=== PATIENT | female | born 1970 | race Caucasian/White ===

== ENCOUNTER → 2017-12-28 10:54 | Outpatient (CLI) | payer OTHER, SELFPAY ==
--- NOTE | 2017-12-28 13:43 | PFT ---
INTRODUCTION: The patient is a 47-year-old female currently under the care of Dr. Faulkner the presents for pulmonary function testing secondary to a diagnosis of asthma. Respiratory therapy reports good patient effort reports no other concerns. Bronchodilators were used during testing. INTERPRETATION: Forced expiration spirometry demonstrates the presence of a mild large airways obstructive ventilatory defect. There was a significant response to aerosolized bronchodilators noted in both FEV1 and FVC. Spirogram is of good quality and plateau gradually. Body plethysmography was performed and reveals a trend towards hyperinflation. Diffusing capacity by single breath CO is within normal limits at 81% of predicted. IMPRESSION: These pulmonary function studies demonstrate the presence of a fully reversible mild large airways obstructive ventilatory defect, consistent with an underlying diagnosis of asthma.
== END ==
PROVIDERS: Family Provider Family Medicine; PCP Family Medicine; Visit Provider Family Medicine
DX: J45.901 Unspecified asthma with (acute) exacerbation (principal)
CPT/HCPCS: 94060; 94726; 94729

== ENCOUNTER 2018-01-17 15:08 | Emergency (ER) | payer OTHER, SELFPAY ==
[2018-01-17 15:11] VITALS: BP 158/85; PULSE 91; PULSE 97; RESP 13; TEMP 35.9; O2SAT 98; O2SAT 99; BMI 39.1
[2018-01-17] MEDS: Ibuprofen 400 MG Tablet 800 MG PO (15:32)
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
[2018-01-17 15:47] VITALS: PULSE 89; O2SAT 98
== END 2018-01-17 15:49 | disposition home or self-care (01) ==
LOC: ED 15:47
PROVIDERS: Emergency Provider Emergency Medicine; Family Provider Family Medicine; PCP Family Medicine
DX: S16.1XXA Strain of muscle, fascia and tendon at neck level, initial encounter (principal); V43.52XA Car driver injured in collision with other type car in traffic accident, initial encounter; Y93.9 Activity, unspecified; Y92.410 Unspecified street and highway as the place of occurrence of the external cause; Y99.8 Other external cause status; Z72.0 Tobacco use
CPT/HCPCS: 99283

== ENCOUNTER → 2019-03-26 12:22 | Outpatient (CLI) | payer OTHER, SELFPAY ==
--- NOTE | 2019-03-26 12:25 | US_ITS ---
STUDY: THYROID ULTRASOUND REASON FOR EXAM: Female, 48 years old. Left neck swelling. TECHNIQUE: Ultrasound evaluation of the left side of the neck in the region of interest was performed with real-time and static moran-scale imaging. COMPARISON: None. FINDINGS: Targeted ultrasound examination of the left side of the neck in the region of clinical concern was performed. There is a well-defined solid mass on the left side of the neck corresponding to the palpable abnormality measuring about 2.4 x 2.3 x 1.4 cm. There is flow around the mass. No other masses are identified. US/Head/Neck Soft Tissue IMPRESSION: Solid mass in the left side of the neck corresponding to the palpable abnormality as described above. Tissue sampling might be needed for final diagnosis if clinically indicated. Electronically Signed: David Bajwa MD at 14:25 EDT Tel , Service support ,
== END ==
LOC: US 12:23
PROVIDERS: Family Provider Family Medicine; PCP Family Medicine; Referring Provider Family Medicine; Visit Provider Family Medicine
DX: R22.0 Localized swelling, mass and lump, head (principal); R22.1 Localized swelling, mass and lump, neck
CPT/HCPCS: 76536

== ENCOUNTER → 2019-04-03 | Outpatient (CLI) | payer OTHER, SELFPAY ==
--- NOTE | 2019-04-03 17:40 | CT_ITS ---
HISTORY: LT NECK MASS ON US. TECHNIQUE: Helically acquired images were obtained of the neck following the intravenous administration of 100ML ml of Isovue 370 Iodinated, IV contrast. A radiation dose optimization technique was used for this scan. COMPARISON: Ultrasound from March 26, 2019. FINDINGS: # of images incl. paperwork: 291 Findings: Within the left upper lobe there is a well-defined 3.2 cm bulla. The aortic arch is normal. Flow is present within the brachiocephalic, bilateral common carotid, bilateral subclavian, bilateral vertebral arteries. The left vertebral artery is dominant over the right. Both left and right vertebral arteries ascend within the respective vertebral foramina, remain patent into the brain performed the basilar artery. Flow is normal within bilateral CCAs, ICAs, and ECAs. Both ICAs remain patent into the skull. Both internal Jugular veins are patent. The airway is widely patent. The uvula and epiglottis are not thickened and remain within the midline. The basilar artery forms the posterior cerebral arteries. Right posterior communicating arteries present. Anterior communicating arteries present. Both ACAs or MCAs are patent. Orbits and globes are normal. Paranasal sinuses and mastoid air cells are free of disease. The thyroid gland is heterogeneous. Within the left lobe of the thyroid gland there is a 1.5 x 1.1 cm well-defined hypodense lesion. It has a central density of 68 Hounsfield units. It has septations. The right lobe of the thyroid gland and isthmus are normal. Bilateral submandibular glands and parotid glands are normal. Some lymph nodes are present within both the left and right neck, however, no lymphadenopathy is perceived. Musculature within the neck is normal. No abscesses are perceived. The left and right submandibular glands are symmetric in size and appearance. Left and right parotid glands are symmetric in size and appearance. The masseter muscles, and the pterygoid muscles are symmetric and normal in appearance. Within the cervical and upper thoracic spine bony alignment is normal. Disc and vertebral body height are normal. Facets are well aligned with some arthropathy. Prevertebral and paraspinal soft tissues are normal. Bilateral temporomandibular joint arthritis is present with remodeling of the mandibular condyles. A left sided molar, likely the third molar appears to be ingrown with its roots extending into the left maxillary sinus. No sinus disease is perceived. CT/Soft Tissue Neck WITH Contrast IMPRESSION: No mass perceived within the left neck. Within the left lobe of the thyroid gland, however, there is a complex septated hypodense lesion measuring 1.1 x 1 cm. I do not believe this is the lesion identified on the ultrasound from March 26. This lesion in the left lobe of the thyroid gland should be compared and a previous imaging. If no previous imaging, short-term follow-up versus fine-needle aspiration should be considered. I think it is feasible, that the lesion identified on the ultrasound is the normal left submandibular gland. Individualized dose optimization techniques were used for this CT. at 0329 Reported and signed by: Kadeem Adams MD Electronically Signed: Kadeem Adams MD at 3:28 EDT Tel , Service support ,
== END | disposition home or self-care (01) ==
LOC: CT 17:37
PROVIDERS: Family Provider Family Medicine; PCP Family Medicine; Referring Provider Otolaryngology; Visit Provider Otolaryngology
DX: R22.1 Localized swelling, mass and lump, neck (principal)
CPT/HCPCS: 70491; Q9967

== ENCOUNTER → 2019-06-10 16:36 | Outpatient (CLI) | payer OTHER, SELFPAY ==
[2019-06-13 12:51] LABS: HPV Reflexed? NOT INDICATED
== END ==
PROVIDERS: Family Provider Family Medicine; PCP Family Medicine; Visit Provider Family Medicine
DX: Z12.4 Encounter for screening for malignant neoplasm of cervix (principal); Z01.419 Encounter for gynecological examination (general) (routine) without abnormal findings
CPT/HCPCS: 88175; G0145

== ENCOUNTER → 2020-01-27 15:18 | Outpatient (CLI) | payer OTHER, SELFPAY ==
--- NOTE | 2020-01-27 15:29 | MRI_ITS ---
STUDY: MRI LUMBAR SPINE WITHOUT CONTRAST REASON FOR EXAM: Female, 49 years old. pain low back and rt sciatica X 3 years, NKI TECHNIQUE: Standardized fat and water weighted pulse sequences were obtained in the sagittal and axial planes. COMPARISON: Lumbar spine x-ray dated May 12, 2016 FINDINGS: No compression deformity or fracture line or bone marrow edema is present. Benign small rounded fatty hemangioma is present in the L1 vertebral body. Normal lumbar lordosis. Mild dextroscoliosis is present. Normal conus medullaris that terminates at the T12-L1 level. L1-2: Normal endplates. Normal disc height, hydration and morphology. Normal bilateral facet joints. Normal central canal and bilateral lateral recesses. Normal bilateral intervertebral neural foramina. L2-3: Normal endplates. Normal disc height, hydration and morphology. Normal bilateral facet joints. Normal central canal and bilateral lateral recesses. Normal bilateral intervertebral neural foramina. L3-4: Minimal retrolisthesis of L3 on L4 up to millimeters is present. Normal endplates. Minimal disc space narrowing and diffuse disc desiccation are present. Normal bilateral facet joints. Normal central canal and bilateral lateral recesses. Normal bilateral intervertebral neural foramina. L4-5: Minimal retrolisthesis of L4 on L5 of 2 mm is present. Normal endplates. Minimal disc space narrowing and diffuse disc desiccation are present. Normal bilateral facet joints. Normal central canal and bilateral lateral recesses. Normal bilateral intervertebral neural foramina. L5-S1: Normal endplates. Normal disc height, hydration and morphology. Normal bilateral facet joints. Normal central canal and bilateral lateral recesses. Normal bilateral intervertebral neural foramina. Normal visualized sacral ala. Normal visualized paraspinous soft tissue structures. MRI/Spine Lumbar (Routine) IMPRESSION: 1. Mild degenerative changes at L3-L4 and L4-L5. Electronically Signed: Taurus Faria MD at 21:16 EDT , Service support ,
== END ==
LOC: MRI 15:20
PROVIDERS: PCP Family Medicine; Referring Provider Family Medicine; Visit Provider Family Medicine
DX: M54.31 Sciatica, right side (principal)
CPT/HCPCS: 72148

== ENCOUNTER → 2021-02-16 08:06 | Outpatient (CLI) | payer OTHER, SELFPAY ==
--- NOTE | 2021-02-16 08:18 | CT_ITS ---
STUDY: CT SOFT TISSUE NECK WITH CONTRAST REASON FOR EXAM: Female, 50 years old. LEFT SIDED MASS/SUPERIORLY AND LUMP POSTERIOR TO EAR RADIATION DOSAGE (If Supplied By Facility): CTDIvol = ( 17.28 ) mGy, DLP = ( 522.43 ) mGycm TECHNIQUE: The patient was scanned in a multi-detector CT scanner. High resolution transaxial imaging was performed following intravenous administration of IV 100mL Isovue-370. Sagittal and coronal images were reconstructed. Individualized dose optimization techniques were used for this CT. COMPARISON: Comparison is made with prior examination dated 04/03/2019. FINDINGS: Normal bilateral parotid glands. Normal bilateral director of loss prevention spaces. Normal bilateral parapharyngeal spaces. Normal bilateral carotid spaces. Normal bilateral sublingual and submandibular glands and spaces. Normal visualized nasopharynx. Normal retropharyngeal space. Normal perivertebral space. Normal visualized bilateral faucial tonsils. The visualized tongue, tongue base and oropharynx are normal. The visualized cervical lymph nodes (levels I-) are within normal size limits, and maintain normal morphology. There is no demonstrated solid or cystic mass lesion. There is no abnormal contrast enhancement. Normal epiglottis, bilateral vallecula and hypopharynx. The pre-epiglottic and paraglottic adipose spaces are normal. Normal visualized bilateral piriform sinuses, aryepiglottic folds, vocal cords, and arytenoid-cricoid articulations. Normal subglottic trachea. There is a 1 cm rounded hypodensity in the inferior pole of the left lobe of the thyroid. This is unchanged. Tiny hypodensities also seen in lateral midportion of the right lobe. This is unchanged. Normal visualized pulmonary apices. Normal visualized paranasal sinuses. Normal visualized cervical spine. CT/Soft Tissue Neck WITH Contrast IMPRESSION: Stable examination. No mass is seen. Stable hypodensity in the left lobe of the thyroid. Electronically Signed: Daniele Durbin MD at 13:00 EDT , Service support ,
== END ==
PROVIDERS: PCP Family Medicine; Referring Provider Family Medicine; Visit Provider Family Medicine
DX: R22.1 Localized swelling, mass and lump, neck (principal)
CPT/HCPCS: 70491; Q9967

== ENCOUNTER → 2022-10-21 | Outpatient (CLI) | payer OTHER, SELFPAY ==
[2022-10-21 17:30] LABS: Absolute Lymphocyte Count 2.37 X10^3/uL (0.83-4.51); Absolute Neutrophil Count 8.1 X10^3/uL (2.0-7.7); Basophil# 0.05 X10^3/uL; Basophil% 0.4 % (0-1); Eosinophil# 0.08 X10^3/uL; Eosinophils% 0.7 % (0-5); Hematocrit 44.2 % (37-47); Hemoglobin 14.4 g/dL (12.0-15.0); Lymphocyte # 2.37 X10^3/ul (0.83-4.51); Lymphocyte % 20.8 % (19-41); Mean Corp Hgb Conc 32.6 g/dL (32-36); Mean Corpuscular Hgb 30.4 pg (27.0-32.0); Mean Corpuscular Volume 93.4 fL (81-99); Mean Platelet Vol. 10.7 fl (6.2-12.0); Monocyte# 0.81 X10^3/uL; Monocyte% 7.1 % (0-10); NRBC Flagged by Analyzer 0 % (0-5); Neutrophil # 8.05 X10^3/uL (2.7-7.7); Neutrophil % 70.6 % (47-70); Platelet Count 334 K/mm3 (150-450); RBC Distribution Width CV 12.6 % (11.6-14.6); RBC Distribution Width SD 43.5 fl (35.1-43.9); Red Blood Count 4.73 M/mm3 (4.2-5.4); White Blood Count 11.4 K/mm3 (4.4-11.0)
[2022-10-21 18:07] LABS: Hemoglobin A1c 5.5 % (3.8-5.6)
[2022-10-21 18:15] LABS: Vitamin B12 300 pg/mL (211-911); Vitamin D,25 Hydroxy 14.1 ng/mL
[2022-10-21 18:34] LABS: AST(SGOT) 11 U/L (15-37); Alanine Aminotransfer ALT/SGPT 23 U/L (13-56); Albumin, Serum 3.8 g/dL (3.2-5.0); Alkaline Phosphatase 87 U/L (45-117); Anion Gap 8 (5-15); BUN 15 mg/dL (7-18); BUN/Creat Ratio 24.5 RATIO (10-20); Calcium,Total 8.8 mg/dL (8.5-10.1); Chloride 103 mmol/L (98-107); Cholesterol 243 mg/dL (200); Creatinine, Serum 0.61 mg/dL (0.55-1.02); EST Glomerular Filtration Rate 109 mL/min (>60); Est Glom Filt Rate - Afr Amer 132 mL/min (>60); Globulin 3.7 g/dL (2.2-4.2); Glucose 89 mg/dL (74-106); High Density Lipoprotein 41 mg/dL; Potassium 3.7 mmol/L (3.5-5.1); Protein, Total 7.5 g/dL (6.4-8.2); Sodium Level 139 mmol/L (136-145); Thyroid Stim Hormone (TSH) 1.44 uIU/mL (0.358-3.74); Triglycerides 413 mg/dL
== END | disposition home or self-care (01) ==
LOC: BFHLAB 14:44
PROVIDERS: PCP Family Medicine; Visit Provider Family Medicine
DX: Z00.00 Encounter for general adult medical examination without abnormal findings (principal); R53.83 Other fatigue
CPT/HCPCS: 36415; 80053; 80061; 82306; 82607; 83036; 84443; 85025

== ENCOUNTER → 2023-04-03 | Outpatient (CLI) | payer OTHER, SELFPAY ==
--- NOTE | 2023-04-03 08:30 | BI_ITS ---
MAMMOGRAPHY - BILATERAL SCREENING REASON FOR EXAM: Female, 52 years old. Routine annual screening examination. PERTINENT HISTORY: Non-contributory. TECHNIQUE: Digital bilateral breast easton (3D mammographic acquisition) in the CC and MLO projections. 2-D mediolateral oblique (MLO) and craniocaudad (CC) views of both breasts were obtained. CAD: Full Field Digital Mammography with Computer Added Detection was performed. COMPARISON: Mammogram from 09/10/2014. FINDINGS: Breast Composition: There are scattered areas of fibroglandular density. There are no dominant masses or suspicious calcifications. No other significant abnormalities are identified. There has been no significant change since the prior study. BI/SCRN MAMM (CAD)W/EASTON BILAT IMPRESSION: Stable bilateral screening mammogram. Yearly follow-up mammogram recommended. (A) ASSESSMENT CATEGORY: BIRADS Category 2: Benign. A letter regarding these results will be sent to the patient by the facility within 30 days. Approximately 10% of breast cancers are not detected by mammography. A normal mammogram should not delay biopsy of a clinically suspicious abnormality. Electronically Signed: Louis Claudio DO at 15:05 EDT ,
== END | disposition home or self-care (01) ==
LOC: OPBI 08:27
PROVIDERS: PCP Family Medicine; Referring Provider Family Medicine; Visit Provider Family Medicine
DX: Z12.31 Encounter for screening mammogram for malignant neoplasm of breast (principal)
CPT/HCPCS: 77063; 77067

== ENCOUNTER 2023-05-18 07:06 | Day surgery (SDC) | payer OTHER, SELFPAY ==
[2023-05-18] VITALS (7 sets, daily range): BP systolic 92–118; BP diastolic 66–75; PULSE 71–82; RESP 16; TEMP 36.2–36.5; O2SAT 95–97; BMI 39.0
[2023-05-18 07:36] LABS: Internal QC Validated? YES +Cl - CLEAR BKGD; Pregnancy, Urine Negative Negative
[2023-05-18] MEDS: Lactated Ringers 1,000 ML 15 ML IV (07:44)
--- NOTE | 2023-05-18 08:27 | PCM.HP.STD ---
[facility] - General General Date of Admission: 05/18/23 Date of Service: 05/18/23 Chief Complaint: Screening colonoscopy [facility] Narrative SUSAN AKERS, is a 52 F who presents today for screening colonoscopy. She has a family history of cancers polyps in her mother status post segmental resection. She has never had a colonoscopy. She denies any abdominal pain. She denies any nausea, vomiting or diarrhea. She denies any chest pain or shortness of breath. She has not take any medicines on a daily basis. Overall she is in fairly good health. [facility] Medical History (Updated 05/16/23 @ 09:34 by Emy Portillo) Asthma Heartburn History of edema Leg cramps Migraine headache Smoker Syncope Wears partial dentures Home Medications cholecalciferol (vitamin D3) 50 mcg (2,000 unit) capsule 50 mcg PO DAILY 02/28/23 [History Last Taken Unknown] hydrocodone 7.5 mg-acetaminophen 325 mg tablet 1 tab PO Q6H PRN pain 05/16/23 [History Last Taken Unknown] Allergy/AdvReac Type Severity Reaction Status Date / Time No Known Allergies Allergy Verified 05/18/23 07:40 Family History (Updated 02/28/23 @ 08:49 by Rimma Riggins) Mother Colon polyps Colon cancer History of partial colectomy Surgical History (Updated 05/16/23 @ 09:34 by Emy Portillo) History of dental surgery History of tonsillectomy (~1975) Social History Smoking Status: Current every day smoker tobacco type: cigarettes ROS Review of Systems ROS Unobtainable: other Constitutional Constitutional: Denies fatigue, fever(s), poor appetite, weight gain or weight loss ENT HEENT: Denies mouth lesions Cardiovascular Cardiovascular: Denies abdominal bloating, abdominal edema or abdominal pain Respiratory/Chest Respiratory/Chest: Denies change in mental status, change in phlegm color, chest congestion or chest tightness Gastrointestinal Gastrointestinal: Denies belching, bloating, change in bowel habits, change in stool character, chewing difficulty, coffee ground emesis, constipation, cramping, diarrhea, dyspepsia, dysphagia, early satiety, excessive flatus, fecal incontinence, heartburn, hematemesis, hematochezia, hemorrhoids, loose stools, melena, nausea, odynophagia, rectal bleeding, tenesmus, vomiting or weight changes Genitourinary Genitourinary: Denies abdominal discomfort, burning urination or itching Musculoskeletal Musculoskeletal: Reports as per HPI; Denies muscle weakness or myalgias Integumentary Integumentary: Denies jaundice Neurologic Neurologic: Denies lack of coordination or weakness Psychiatric Psychiatric: Denies confusion, depression, memory loss, mood swings, paranoia or suicidal ideation Endocrine Endocrinology: Denies systems reviewed and no addt'l complaints, except as documented Hematologic/Lymphatic Hematologic/Lymphatic: Denies anemia, easy bleeding, easy bruising or lymphadenopathy Allergic/Immunologic Allergic/Immunologic: Denies systems reviewed and no addt'l complaints, except as documented Vital Signs Vital Signs Vital Signs: 05/18/23 07:40 05/18/23 07:40 Temperature 97.1 F L Temperature Source Temporal Pulse Rate 76 Respiratory Rate 16 Respiratory Pattern Normal Blood Pressure 118/71 Blood Pressure Mean 86 Blood Pressure Source Monitor Blood Pressure Position Semi-Fowlers Blood Pressure Location Left Arm Pulse Ox 95 Oxygen Delivery Method Room Air Weight Weight: 234 lb 9.149 oz Body Mass Index (BMI) 39.0 Physical Exam Const alert General Appearance: cooperative Orientation / Consciousness: oriented to person HEENT hearing grossly normal bilaterally Head and Scalp: normal to inspection Face and Sinus: face symmetric Nose: external nose normal Mouth: oral and palatal mucosa normal Eyes conjunctivae normal General Eye: normal appearance of both eyes Neck full ROM General: normal visual inspection Lymph Lymphatic: no lymphadenopathy noted Chest inspection of chest normal and palpation of chest normal Chest: symmetrical chest wall rise Resp normal respiratory effort Effort and Inspection: able to speak in complete sentences Cardio regular rate GI non-distended Percussion: normal to percussion Rectal Exam: deferred Neuro Speech: speech normal Gait (Neuro): normal gait Results Lab / Micro Data Labs: Laboratory Results - last 24 hr 05/18/23 07:25: Urine Test Negative Assessment & Plan Assessment/Plan (1) Encounter for screening for malignant neoplasm of colon: PLAN: She was explained alternatives, risk, benefits including outstanding bleeding, infection, sepsis, perforation, need for emergent surgery . She will have an ASA of 2.
--- NOTE | 2023-05-18 08:57 | OP.COLON_ITS ---
Patient Name: Kylah Edge Procedure Date: 05/18/2023 8:27 AM Date of : 1970 Age: 52 Procedure: Colonoscopy Indications: Screening for colorectal malignant neoplasm Providers: William Alanis DO Referring MD: Andi Faulkner Medicines: Monitored Anesthesia Care Patient Profile: This is a 52 year old female. Refer to note in patient chart for documentation of history and physical. Last Colonoscopy: none. The patient's first colonoscopy is today. Complications: No immediate complications. Procedure: Pre-Anesthesia Assessment: - Prior to the procedure, a History and Physical was performed, and patient medications and allergies were reviewed. The patient is competent. The risks and benefits of the procedure and the sedation options and risks were discussed with the patient. All questions were answered and informed consent was obtained. Patient identification and proposed procedure were verified by the physician in the pre-procedure area. Mental Status Examination: alert and oriented. Airway Examination: normal oropharyngeal airway and neck mobility. Respiratory Examination: clear to auscultation. CV Examination: normal. Prophylactic Antibiotics: The patient does not require prophylactic antibiotics. Prior Anticoagulants: The patient has taken no previous anticoagulant or antiplatelet agents. After reviewing the risks and benefits, the patient was deemed in satisfactory condition to undergo the procedure. The anesthesia plan was to use monitored anesthesia care (MAC). Immediately prior to administration of medications, the patient was re-assessed for adequacy to receive sedatives. The heart rate, respiratory rate, oxygen saturations, blood pressure, adequacy of pulmonary ventilation, and response to care were monitored throughout the procedure. The physical status of the patient was re-assessed after the procedure. After I obtained informed consent, the scope was passed under direct vision. Throughout the procedure, the patient's blood pressure, pulse, and oxygen saturations were monitored continuously. The Colonoscope was introduced through the anus and advanced to the terminal ileum. The colonoscopy was performed without difficulty. The patient tolerated the procedure well. The quality of the bowel preparation was adequate. Scope In: 8:40:04 AM Scope Withdrawal Time 0 hours 8 minutes 14 seconds Scope Out: 8:50:48 AM Total Procedure Duration Time 0 hours 10 minutes 44 seconds Findings: The perianal and digital rectal examinations were normal. The colon (entire examined portion) appeared normal. A few small-mouthed diverticula were found in the recto-sigmoid colon and sigmoid colon. The exam was otherwise without abnormality on direct and retroflexion views. Impression: - The entire examined colon is normal. - Diverticulosis in the recto-sigmoid colon and in the sigmoid colon. - The examination was otherwise normal on direct and retroflexion views. - No specimens collected. Recommendation: - Discharge patient to home. - Resume previous diet. - Continue present medications. - Repeat colonoscopy in 10 years for screening purposes. Procedure Code(s): --- Professional --- G0121, Colorectal cancer screening; colonoscopy on individual not meeting criteria for high risk CPT copyright 2017 [employer]. All rights reserved. The codes documented in this report are preliminary and upon corporate executive chef review may be revised to meet current compliance requirements. William Alanis DO 05/18/2023 8:57:17 AM This report has been signed electronically. Number of Addenda: 0 Note Initiated On: 05/18/2023 8:27 AM
--- NOTE | 2023-05-18 08:58 | OP.CCLET_ITS ---
05/18/2023 Andi Faulkner [address] [place] [address] Re : Colonoscopy procedure for Kylah Minesh Dear Dr. Faulkner This procedure was performed on May. My impressions and recommendations are as follows: Impressions : - The entire examined colon is normal. - Diverticulosis in the recto-sigmoid colon and in the sigmoid colon. - The examination was otherwise normal on direct and retroflexion views. - No specimens collected. Recommendations : - Discharge patient to home. - Resume previous diet. - Continue present medications. - Repeat colonoscopy in 10 years for screening purposes. My findings are described in the full procedure note, which is enclosed. If I can be of further assistance, please feel free to contact me at . Sincerely, William Alanis, 05/18/2023 8:57:17 AM This report has been signed electronically.
== END 2023-05-18 09:40 | disposition home or self-care (01) ==
LOC: EN 07:09 → AC 07:09
PROVIDERS: Anesthesiology; PCP Family Medicine; Referring Provider Family Medicine; Visit Provider Internal Medicine Gastroenterology
PROC: 0DJD8ZZ Inspection of Lower Intestinal Tract, Via Natural or Artificial Opening Endoscopic (ICD-10-PCS; CPT 45378; principal; 2023-05-18 08:10)
DX: Z12.11 Encounter for screening for malignant neoplasm of colon (principal); K57.30 Diverticulosis of large intestine without perforation or abscess without bleeding; F17.210 Nicotine dependence, cigarettes, uncomplicated
CPT/HCPCS: G0121; 81025; J7120; J2405

== ENCOUNTER 2024-05-21 14:00 | Emergency (ER) | payer OTHER, SELFPAY ==
[2024-05-21 14:03] VITALS: BP 134/96; PULSE 86; RESP 18; TEMP 36.5; O2SAT 96; BMI 40.6
--- NOTE | 2024-05-21 14:37 | EKG12_ITS ---
Test Reason : GEN ILLNESS Blood Pressure : / mmHG Vent. Rate : 079 BPM Atrial Rate : 079 BPM P-R Int : 152 ms QRS Dur : 074 ms QT Int : 382 ms P-R-T Axes : 002 010 034 degrees QTc Int : 438 ms Normal sinus rhythm Low voltage QRS Borderline ECG Confirmed by Scott Boyd ([id number]), editor trade journal SINCERE FIGUEROA ([id number]) on 05/23/2024 9:23:21 AM Referred By: BROOKE CALLEJAS Confirmed By:Scott Boyd
[2024-05-21 14:53] LABS: Absolute Neutrophil Count 7.1 X10^3/uL (2.0-7.7); Basophil# 0.06 X10^3/uL; Basophil% 0.6 % (0-1); Eosinophil# 0.06 X10^3/uL; Eosinophils% 0.6 % (0-5); Hematocrit 42.6 % (37-47); Hemoglobin 13.9 g/dL (12.0-15.0); Lymphocyte % 22.9 % (19-41); Mean Corp Hgb Conc 32.6 g/dL (32-36); Mean Corpuscular Hgb 30.7 pg (27.0-32.0); Mean Platelet Vol. 9.8 fl (6.2-12.0); Monocyte# 0.86 X10^3/uL; Monocyte% 8.2 % (0-10); NRBC Flagged by Analyzer 0 % (0-5); Neutrophil # 7.05 X10^3/uL (2.7-7.7); Neutrophil % 67.3 % (47-70); Platelet Count 297 K/mm3 (150-450); RBC Distribution Width SD 44.3 fl (35.1-43.9); Red Blood Count 4.53 M/mm3 (4.2-5.4); White Blood Count 10.5 K/mm3 (4.4-11.0)
--- NOTE | 2024-05-21 14:54 | EX.ED.DYSGE1 ---
HPI History of Present Illness Chief Complaint: General Illness Narrative Narrative: Presents here referred from PCP office for evaluation. She had transient chest heaviness 1:30 AM this morning with diaphoresis. Symptoms lasted 30 minutes. Over the past week had pain in her neck and shoulder that is resolved. No dyspnea no cough. History of hyperlipidemia and tobacco. Family history in grandparents with MIs in their 50s and 60s. None in her parents. Denies recent travel or surgeries. No history of PE or DVT. No history of heart cath. No coronary disease history. Currently symptom-free. EKG PCP office reviewed was normal sinus rhythm. Prior similar symptoms: No PFSH PFSH Medical History Wears partial dentures Migraine headache Syncope Heartburn History of edema Leg cramps Smoker Asthma Home Medications ?Medication ?Instructions ?Recorded ?Last Taken ?Type cholecalciferol (vitamin D3) 50 50 mcg PO DAILY 02/28/23 Unknown History mcg (2,000 unit) capsule hydrocodone 7.5 mg-acetaminophen 1 tab PO Q6H PRN pain 05/16/23 Unknown History 325 mg tablet Allergy/AdvReac Type Severity Reaction Status Date / Time No Known Allergies Allergy Verified 05/21/24 14:02 Family History Mother Colon polyps Colon cancer History of partial colectomy Surgical History History of tonsillectomy (~1975) History of dental surgery Social History Smoking Status: Current every day smoker tobacco type: cigarettes ROS ROS ED Constitutional Constitutional ED: Denies chills, fever(s) or sweats Eyes Eyes: Denies change in vision ENT ENT ED: Denies dysphagia or sore throat Cardiovascular Cardiovascular: Reports chest pain; Denies leg edema, palpitations or racing heartbeat Respiratory/Chest Respiratory/Chest: Denies cough, dyspnea or dyspnea on exertion Gastrointestinal Gastrointestinal: Denies abdominal pain, diarrhea, nausea or vomiting Genitourinary Genitourinary ED: Denies dysuria, hematuria or urinary frequency Musculoskeletal Musculoskeletal: Denies back pain, extremity pain or neck pain Integumentary Denies rash or wounds Neurologic Neurologic: Denies headache(s), paresthesias or weakness EXAM Physical Exam Const Vital Signs: 05/21/24 14:03 Temperature 97.7 F L Temperature Source Temporal Pulse Rate 86 Respiratory Rate 18 Blood Pressure 134/96 H Blood Pressure Mean 108 Pulse Ox 96 Oxygen Delivery Method Room Air Positive well nourished and well developed General Appearance ED: well developed and NAD HEENT Reports moist mucous membranes normocephalic and atraumatic Eyes EOMs intact bilaterally and conjunctivae normal General Eye ED: Yes normal appearance of both eyes Neck no lymphadenopathy and supple General: Negative for tenderness Chest Wall Chest: Negative for tenderness Resp normal respiratory effort and normal air movement Effort and Inspection: symmetric chest movement; Negative for respiratory distress Cardio regular rate, regular rhythm and no murmurs Peripheral Pulses: pulses 2+ throughout GI normal to inspection, nondistended, normoactive bowel sounds and non-tender Palpation: Negative for guarding or rebound tenderness present Back/Spine no CVA tenderness and no thoracic nor lumbar tenderness Extremity normal to inspection General Extremety ED: Negative for edema or tenderness General Extremity: Negative for edema Neuro oriented x3 and no sensory deficits noted Sensorium / Orientation: awake and alert Skin no rashes or lesions noted and no wounds MDM MDM MDM Narrative Medical decision making narrative: Interventions / MDM: Differential diagnosis: Atypical chest pain Diagnosis considered but do not suspect: ACS however EKG cardiac enzyme negative. Pneumothorax however chest x-ray negative. Pulmonary embolism however no risk factors no hypoxia no tachycardia. My EKG interpretation: Sinus rate of 79, no ST or T wave changes. Imaging independently reviewed and interpreted by myself: 2 view chest x-ray: No acute process also read by radiology. External documents reviewed: N/A Test considered but not ordered:N/A ED course: Patient asymptomatic on arrival. EKG from office normal. Repeat EKG normal. Sent here for cardiac rule out. She if symptoms nearly 24 hours ago. Basic labs 1 troponin chest x-ray ordered. 1530: Troponin negative. With symptoms over 24 hours negative troponin, there is no cardiac injury. Do not feel repeat troponin is necessary. Chest x-ray negative. Basic labs are normal. She remained symptom-free. Patient was discharged with outpatient follow-up with strict return precautions. All questions were answered. Re-evaluation: stable Disposition discussed with patient/family/significant other: Patient Case discussed with consulting clinician: N/A This note was generated with [employer] dictation software. It may contain incorrect words, spelling, and punctuation that were not noted in checking the note before signing. Lab Data Attestation: I reviewed the patient's lab results. Labs: Laboratory Results - last 24 hr 05/21/24 14:45 WBC 10.5 RBC 4.53 Hgb 13.9 Hct 42.6 MCV 94.0 MCH 30.7 MCHC 32.6 RDW Std Deviation 44.3 H RDW Coeff of Lur[place] 13.0 Plt Count 297 MPV 9.8 Immature Gran % (Auto) 0.400 Neut % (Auto) 67.3 Lymph % (Auto) 22.9 [place] % (Auto) 8.2 Eos % (Auto) 0.6 Baso % (Auto) 0.6 Absolute Neuts (auto) 7.1 Absolute Lymphs (auto) 2.40 Nucleated RBC % 0 Sodium 139 Potassium 4.2 Chloride 103 Carbon Dioxide 31.0 Anion Gap 5 BUN 10 Creatinine 0.64 Estim Creat Clear Calc 121.62 Est GFR (MDRD) Af Amer 123 Est GFR (MDRD) Non-Af 102 BUN/Creatinine Ratio 15.5 Glucose 83 Calcium 9.4 Troponin I High Sens 4 Radiography Diagnostic Testing: Clinical Impression(s) from Imaging Studies Chest X-Ray 05/21/24 15:00 IMPRESSION: No acute abnormality is seen. Electronically Signed: Daniele Durbin MD at 15:19 EDT Reading Location ID and State: [facility] / [place] , Service support , Discharge Plan Triage Chief Complaint: General Illness ED Provider: Gilbert Yeung Dx/Rx/DC Orders Clinical Impression: Chest pain, History of tobacco use Instructions: ED Chest Pain, Uncertain Cause Prescriptions: No Action cholecalciferol (vitamin D3) 50 mcg (2,000 unit) capsule 50 mcg PO DAILY hydrocodone-acetaminophen 7.5-325 mg tablet 1 tab PO Q6H PRN (Reason: pain) Patient Comments: take 1 tablet by mouth every 6 hours if needed FOR INTRACTABLE PAIN Primary Care Provider: Andi Faulkner Referrals: Andi Fauklner, [Primary Care Provider] - 3-5 Days Activity Restrictions/Additional Instructions: Blood work negative cardiac enzyme chest x-ray negative. EKG normal. Follow-up with your doctor further testing. Symptoms returns or worsens, return to ED for reevaluation. Print Language: Swedish Disposition Disposition: Home, Self Care Discharge Date/Time: 05/21/24 15:43
--- NOTE | 2024-05-21 15:00 | RAD_ITS ---
STUDY: X-RAY CHEST REASON FOR EXAM: Female, 53 years old. Chest pain and nausea. TECHNIQUE: PA and lateral views of the chest. COMPARISON: Comparison is made with prior study dated March 20, 2009. FINDINGS: EKG electrodes are seen. The lungs are clear and expanded. There is no demonstrated pleural abnormality. Normal size heart. Normal mediastinum and [place]. Normal visualized pulmonary arteries. Normal visualized aortic arch and descending thoracic aorta. There is demineralization of the osseous structures. Normal visualized ribs, clavicles, and shoulders. There is no demonstrated abnormality of the visualized soft tissue structures of the upper abdomen. RAD/Chest PA and Lateral IMPRESSION: No acute abnormality is seen. Electronically Signed: Daniele Durbin MD at 15:19 EDT ,
[2024-05-21 15:11] LABS: Anion Gap 5 (5-15); BUN 10 mg/dL (7-18); BUN/Creat Ratio 15.5 RATIO (10-20); Calcium,Total 9.4 mg/dL (8.5-10.1); Chloride 103 mmol/L (98-107); Creatinine, Serum 0.64 mg/dL (0.55-1.02); EST Glomerular Filtration Rate 102 mL/min (>60); Est Glom Filt Rate - Afr Amer 123 mL/min (>60); Estimated Creatinine Clearance 121.62 ml/min; Glucose 83 mg/dL (74-106); Potassium 4.2 mmol/L (3.5-5.1); Sodium Level 139 mmol/L (136-145); Troponin-I HS 4 pg/mL (3.0-54.0)
[2024-05-21 15:39] VITALS: BP 134/87; PULSE 84; RESP 19; TEMP 36.8; O2SAT 96
== END 2024-05-21 15:43 | disposition home or self-care (01) ==
PROVIDERS: Emergency Provider Emergency Medicine; PCP Family Medicine; Visit Provider Emergency Medicine
DX: R07.89 Other chest pain (principal); F17.210 Nicotine dependence, cigarettes, uncomplicated
CPT/HCPCS: 71046; 80048; 84484; 85025; 93005; 99284; A4216

== ENCOUNTER → 2024-06-12 | Outpatient (CLI) | payer OTHER, SELFPAY ==
--- NOTE | 2024-06-12 12:38 | STRESSREP_ITS ---
Stress Test Report Date: 06/12/2024 Procedure: Pharmacologic stress nuclear imaging study Indications: Chest pain Consent: Per the patient Procedure: The patient underwent pharmacologic (Regadenoson 0.4mg ) evaluation with a peak heart rate of 99 beats per minute (59%predicted maximal heart rate) and a peak blood pressure of 128/70 mmHg. The baseline ECG demonstrated sinus rhythm. The peak pharmacologic ECG demonstrated no ischemic changes. There were no cardiac dysrhythmias pretest, during pharmacologic infusion, or recovery. There was no complaint of chest discomfort during pharmacologic infusion or recovery. The patient was injected with 14.8 millicuries of technetium 99m Cardiolite and subsequently rest SPECT Cardiolite nuclear imaging was obtained in the horizontal long, vertical long, and short axis views. The patient underwent pharmacologic (Regadenoson) evaluation. The patient was injected with 44.4 millicuries of technetium 99m Cardiolite and subsequently stress SPECT Cardiolite nuclear imaging was obtained in the horizontal long, vertical long, and short axis views. A gated Cardiolite study at peak stress was obtained. The examination was stopped secondary to completion of protocol. Rest and stress SPECT Cardiolite nuclear imaging status post realignment, normalization, and attenuation correction demonstrate no fixed or reversible perfusion defects. There is end systolic thickening and brightening. The gated Cardiolite study demonstrates myocardial thickening and inward wall motion. The reported LVEF is 81%. Impression: 1. Pharmacologic (Regadenoson) evaluation 2. Peak pharmacologic ECG with no ischemic changes. 3. There were no cardiac dysrhythmias pretest, during pharmacologic infusion, or recovery. 5. Rest and stress SPECT Cardiolite nuclear imaging demonstrate relative uniform tracer uptake and myocardial perfusion appearing within normal limits. 6. The gated Cardiolite study reports an LVEF of 81%. This note was generated with [employer] software. It may contain incorrect words, spelling, and punctuation that were not noted in checking the note before signing.
== END | disposition home or self-care (01) ==
PROVIDERS: PCP Family Medicine; Referring Provider Family Medicine; Visit Provider Family Medicine
DX: R07.9 Chest pain, unspecified (principal)
CPT/HCPCS: 78452; 93017; A9500; A4216; J2785

== ENCOUNTER → 2024-12-03 | Outpatient (CLI) | payer OTHER, SELFPAY ==
[2024-12-03 18:10] LABS: Amphetamine Urine NEGATIVE (<1000 ng/mL); Barbiturate Urine VISTA NEGATIVE (< 200 ng/mL); Benzodiazepine Urine VISTA NEGATIVE (< 200 ng/mL); Cocaine Urine NEGATIVE (< 300 ng/mL); Ecstacy Urine VISTA POSITIVE (< 500 ng/mL); Methadone Urine VISTA NEGATIVE (< 300 ng/mL); Opiates Urine POSITIVE (< 300 ng/mL); PCP Urine NEGATIVE (< 25 ng/mL); THC Urine VISTA POSITIVE (< 50 ng/mL); Vista UDS pH Range 5
== END | disposition home or self-care (01) ==
PROVIDERS: PCP Family Medicine; Visit Provider Family Medicine
DX: Z79.899 Other long term (current) drug therapy (principal)
CPT/HCPCS: 80307

== ENCOUNTER → 2025-06-30 | Outpatient (CLI) | payer OTHER, SELFPAY ==
[2025-06-30 19:07] LABS: Barbiturate Urine NEGATIVE (< 200 ng/mL); Benzodiazepine Urine NEGATIVE (< 200 ng/mL); PCP Urine NEGATIVE (< 25 ng/mL); THC Urine PRESUMPTIVE POSITIVE (< 50 ng/mL)
== END | disposition home or self-care (01) ==
LOC: BFHLAB 14:39
PROVIDERS: PCP Family Medicine; Visit Provider Family Medicine
DX: Z79.899 Other long term (current) drug therapy (principal)
CPT/HCPCS: 80307

== ENCOUNTER → 2025-07-11 | Outpatient (CLI) | payer OTHER, SELFPAY ==
--- NOTE | 2025-07-11 18:17 | CT_ITS ---
PROCEDURE: LOW DOSE CT LUNG SCREENING 07/11/2025 REASON FOR EXAM: SCREEN FOR LUNG CA, TOBACCO ABUSE Patient is a current smoker for the past 25-30 years. 1PPD. Asthma. TECHNIQUE: Procedure Code: [id number] Modality: CT Procedure: LOW DOSE CT LUNG SCREENING Coronal and Sagittal reconstruction series were provided. One or more dose reduction techniques were used (e.g., Automated exposure control, adjustment of the mA and/or kV according to patient size, use of iterative reconstruction technique). REFERENCE LINK: [employer] [facility] Lung-RADS RADIATION DOSE SUMMARY: CTDlvol: 4.02 mGy DLP: 135.9 mGycm COMPARISON: Chest x-ray study dated 05/21/2024 FINDINGS: PULMONARY NODULES: (Only nodules >3mm are reported) Pulmonary Nodules: There are no pulmonary nodules. Hardware:None Lymph Nodes:No IV contrast was utilized for the exam therefore visualization of the mediastinal structures is limited. There is no mediastinal, hilar or axillary adenopathy identified. Heart and Vasculature:Heart size and configuration are within normal limits.Atherosclerotic calcifications of the thoracic aorta. Thoracic aorta and pulmonary arteries have normal contours; noncontrast technique limits evaluation. Coronary Artery Calcifications: Present Lungs and Airways: There is a bulla identified in the left upper lobe medially just superior to the aortic arch. Atelectasis or parenchymal scarring is seen involving the lingular lobe anteriorly. There is no consolidative process, pneumonic infiltrates, pneumothoraces or pleural effusions. Upper Abdomen:The lack of IV contrast limits of visibility of the abdominal structures. The visualized liver, spleen, pancreas, adrenal glands and left kidney are unremarkable. Bones:Very mild spondylosis is noted of the thoracic spine. CT/Low Dose CT Lung Screening IMPRESSION: There are no pulmonary nodules identified. Emphysematous changes. There is some parenchymal scarring or atelectasis in the left lung. Coronary artery calcification (CAC) is is present(mild) Lung-RADS Category: 1 NEGATIVE. RECOMMEND 12-MONTH SCREENING LDCT. Reading Location: [facility]
--- OUTSIDE RECORDS SUMMARY | 2025-07-11 18:17 | XMS RPT_ITS | CCD ---
Author Organization [facility] Care Team Providers Care Bus Info Consultant Name Role Phone Dr. Shweta Faulkner Primary Care Provider [phone] Rimma Riggins Attending Provider Unavailable Dr. Shweta Faulkner Referring Provider Friend, Dr. Thomas Attending Provider [phone] Friend, Dr. Thomas Other Provider [phone] Shweta Faulkner DO Primary Care Provider Shweta Faulkner DO A Primary Care Provider SHWETA FAULKNER Primary Care Unavailable SHWETA FAULKNER Primary Care Unavailable Shweta Faulkner Primary Care Unavailable Shweta Faulnker Attending Unavailable Shweta Faulkner Referring Unavailable Shweta Faulkner Primary Care Unavailable Shweta Faulkner Attending Unavailable Shweta Faulkner Primary Care Unavailable Shweta Faulkner Attending Unavailable Medications Current Medications Medication Drug Class(es) Dates Sig (Normalized) Sig (Original) acetaminophen 325 mg / HYDROcodone bitartrate 7.5 mg oral tablet (3 sources) Opioid Agonist Start: 05-16-2023 take 1 tablet by mouth every six hours Hydrocodone-Aceta minophen Active 1 TABLET PO EVERY 6 HOURS May 16, 2023 12:00am HYDROCODONE/ACET AMINOPHEN (NORCO ORAL) Take by mouth. as necessary Active HYDROCODONE/ACET AMINOPHEN (NORCO ORAL) Take by mouth. as necessary 0 Active Comment on above: Take by mouth. as ne cessary [id number] 200 actuat albuterol 0.09 mg/actuat metered dose inhaler (2 sources) beta2-Adrenergic Agonist Start: take 2 puff(s) by inhalation every four hours as needed albuterol HFA (PROAIR HFA) 90 mcg/actuation inhaler Inhale 2 Puffs as instructed every 4 hours as needed. 1 Inhaler 10/10/2017 Active Comment on above: Inhale 2 Puffs as in structed every 4 hours as needed. amoxicillin 500 mg oral capsule (1 source) Penicillin-class Antibacterial Start: End: take 1 capsule by mouth twice daily amoxicillin (AMOXIL) 500 mg capsule Take 1 capsule by mouth two times a day for 10 days. 20 capsule 08/16/2024 08/26/2024 Active cholecalciferol 0.05 mg oral capsule (4 sources) Vitamin D Start: Cholecalciferol, Vitamin D3, 50 mcg (2,000 unit) cap Take by mouth. 02/28/2023 Active Comment on above: Take by mouth. doxycycline monohydrate 100 mg oral tablet (1 source) Tetracycline-class Drug Start: End: take 1 tablet by mouth twice daily doxycycline monohydrate 100 mg tablet Indications: Lower resp. tract infection Take 1 tablet by mouth two times a day for 7 days. May transfer to [place] if less expensive. 14 tablet 0 09/09/2023 09/16/2023 Active Comment on above: Take 1 tablet by [facility] two times a day for 7 days. May transfer to [place] if less expensive. predniSONE 20 mg oral tablet (1 source) Start: End: take 2 tablets by mouth once daily predniSONE (DELTASONE) 20 mg tablet Indications: Lower resp. tract infection , History of asthma Take 2 tablets by mouth once daily for 5 days. 10 tablet 0 09/09/2023 09/14/2023 Active Comment on above: Take 2 tablets by [facility] once daily for 5 days. Completed/Discontinued Medications Medication Drug Class(es) Dates Sig (Normalized) Sig (Original) Migraine Pills (3 sources) Start: 01-17-2018 End: 02-28-2023 Migraine Pills Discontinued January 17, 2018 12:00am February 28, 2023 8:50am Start: 01-17-2018 Migraine Pills Active January 16, 2018 11:00pm phentermine hydrochloride 37.5 mg oral tablet (2 sources) Sympathomimetic Amine Anorectic Start: 08-28-2023 End: 08-16-2024 take 1 tablet by mouth once daily in the morning Phentermine HCl 37.5 mg tablet Take 37.5 mg by mouth every morning. 08/28/2023 08/16/2024 Discontinued Comment on above: Take 37.5 mg by mout h every morning. Problems Active Problems Problem Classification Problem Date Documented Da te Episodic/Chronic Other lower respiratory disease (1 source) Lower respiratory tract infection; Translations: [Unspecified acute lower respiratory infection] 09-09-2023 Episodic Other lower respiratory disease (1 source) H/O: asthma; Translations: [Personal history of other diseases of the respiratory system] 09-09-2023 Episodic Other screening for suspected conditions (not mental disorders or infectious disease) (4 sources) Patient encounter status; Translations: [Encounter for screening for malignant neoplasm of colon] Onset: 07-04-2025 02-28-2023 Episodic Other upper respiratory infections (2 sources) Sore throat symptom; Translations: [Acute pharyngitis, unspecified] 08-16-2024 Episodic Residual codes; unclassified (1 source) Tobacco use; Translations: [Tobacco use] Onset: 07-04-2025 Episodic Past or Other Problems Problem Classification Problem Date Documented Da te Episodic/Chronic Other aftercare (1 source) Other residential (current) drug therapy; Translations: [Other residential (current) drug therapy] Onset: 12-17-2024 Episodic Results Test Name Value Interpretation Reference Range Facility Urine Drug Screen (VISTA)on 06-30-2025 AMPHETAMINES Negative Normal <1000 ng/mL [facility] Comment on above: Order Comment: UKN Performed By: #### L [id number] #### [facility] [address] [place], [address] BARBITIURATES Negative Normal < 200 ng/mL [facility] Comment on above: Order Comment: UKN Performed By: #### L [id number] #### [facility] [address] [place], [place], [id number] BENZODIAZIPINE Negative Normal < 200 ng/mL [facility] Comment on above: Order Comment: UKN Performed By: #### L [id number] #### [facility] [address] [place], [address] BUP Ur Drug Scr Negative Normal < 200 ng/mL [facility] Comment on above: Order Comment: UKN Performed By: #### L [id number] #### [facility] [address] [place], [address] COCAINE Negative Normal < 300 ng/mL [facility] Comment on above: Order Comment: UKN Performed By: #### L [id number] #### [facility] [address] [facility] [address] Fentanyl Negative Normal <5 ng/mL [facility] Comment on above: Order Comment: UKN Result Comment: CONF IRMATORY TESTING FOR ALL POSITIVE URINE DRUG SCREEN RESULTS WILL ONLY BE SENT OUT UPON PHYSICIAN ORDER. Opal Pro Urine Drug Screen methods provide only preliminary analytical test results. A more specific alternate chemical method must be used in order to obtain a confirmed analytical result. Gas chromatography/mass spectrometery (GC/MS) is the preferred confirmatory method. Clinical consideration and professional judgement should be applied to any drug of abuse test result, particularly when preliminary positive results are used. Urine TCA testing must be ordered separately. Use test mnemonic: UTCA Performed By: #### L 505.5000 #### [facility] [address] [place], [address] METHADONE Negative Normal < 300 ng/mL [facility] Comment on above: Order Comment: UKN Performed By: #### L [id number] #### [facility] [address] [place], [address] OPIATES Positive Normal < 300 ng/mL [facility] Comment on above: Order Comment: UKN Result Comment: If c onfirmation testing is needed, a separate order will be required to send out testing to the reference laboratory. Performed By: #### L [id number] #### [facility] [address] [place], [address] OXYCODONE Negative Normal < 100 ng/mL [facility] Comment on above: Order Comment: UKN Performed By: #### L [id number] #### [facility] [address] [place] [id number] PCP Negative Normal < 25 ng/mL [facility] Comment on above: Order Comment: UKN Performed By: #### L [id number] #### [facility] [address] [place] [address] THC Positive Normal < 50 ng/mL [facility] Comment on above: Order Comment: UKN Result Comment: If c onfirmation testing is needed, a separate order will be required to send out testing to the reference laboratory. Performed By: #### L [id number] #### [facility] [address] [place] [address] Urine Drug Screen (VISTA)on 12-03-2024 AMPHETAMINES Negative Normal <1000 ng/mL [facility] Comment on above: Order Comment: MEDTO X Performed By: #### L [id number] #### [facility] [address] [facility] [address] BARBITIURATES Negative Normal < 200 ng/mL [facility] Comment on above: Order Comment: MEDTO X Performed By: #### L [id number] #### [facility] [address] [place] [address] BENZODIAZIPINE Negative Normal < 200 ng/mL [facility] Comment on above: Order Comment: MEDTO X Performed By: #### L [id number] #### [facility] [address] [facility] [address] COCAINE Negative Normal < 300 ng/mL [facility] Comment on above: Order Comment: MEDTO X Performed By: #### L [id number] #### [facility] [address] [facility] [address] ECSTACY Positive Abnormal < 500 ng/mL [facility] Comment on above: Order Comment: MEDTO X Performed By: #### L [id number] #### [facility] [address] [place], [place], [id number] METHADONE Negative Normal < 300 ng/mL [facility] Comment on above: Order Comment: MEDTO X Performed By: #### L [id number] #### [facility] [address] [place], [place], [id number] OPIATES Positive Abnormal < 300 ng/mL [facility] Comment on above: Order Comment: MEDTO X Performed By: #### L [id number] #### [facility] [address] [place], [place], [id number] PCP Negative Normal < 25 ng/mL [facility] Comment on above: Order Comment: MEDTO X Performed By: #### L [id number] #### [facility] [address] [place], [address] THC Positive Abnormal < 50 ng/mL [facility] Comment on above: Order Comment: MEDTO X Performed By: #### L [id number] #### [facility] [address] [place], [place], [id number] VISTA UDS PH 5 Normal [facility] Comment on above: Order Comment: MEDTO X Performed By: #### L [id number] #### [facility] [address] [place], [place], [address] CNOVon 08-16-2024 CNOV Office Visit ([facility] ) KYLAH EDGE ([id number]) 1970 F Date Time Provider Department 08/16/24 3:00 PM [facility] During your visit today, we recorded the following information about you: Temperature Pulse Respiration Blood pressure 99.9 degrees 101/minute 20/minute 106/74 Weight 107 kg Tomas Richardson APRN.CNP 08/16/2024 3:21 PM Signed Subjective HPI Nontoxic-appearing female presents urgent care chief complaint strep throat concerns. Duration of symptoms 2 days. Associated symptoms fever sore throat nausea headache. History of strep throat this feels similar. No known sick contacts. Did take Tylenol. This did help. Denies any difficulty swallowing his secretion decreased range of motion of neck or trismus. Did have tonsils removed as a child. Past medical history prescription medications allergies reviewed. .Patient presents with: Sore Throat: Fever, headache, nausea x 2 days PAST MEDICAL HISTORY Diagnosis Date PMH - PAST MEDICAL HISTORY OF pneumonia PAST SURGICAL HISTORY Procedure Laterality Date NONE ALLERGIES Patient has no known allergies. MEDICATIONS Cholecalciferol, Vitamin D3, 50 mcg (2,000 unit) cap Take by mouth. HYDROCODONE/ACETAMINO PHEN (NORCO ORAL) Take by mouth. as necessary albuterol HFA (PROAIR HFA) 90 mcg/actuation inhaler Inhale 2 Puffs as instructed every 4 hours as needed. FAMILY HISTORY Problem Relation Age of Onset Heart Father Hypertension Father None Mother colon polyps Social History Tobacco Use Smoking status: Every Day Smokeless tobacco: Never Tobacco comments: 0-5 cigarettes per day Substance Use Topics Alcohol use: Yes Comment: weekly wine or beer BP 106/74 Pulse 101 Temp 37.7 ?C (99.9 ?F) Resp 20 Wt 107 kg (235 lb 14.3 oz) LMP (LMP Unknown) SpO2 96% Review of Systems Constitutional: Positive for fever. Negative for chills and malaise/fatigue. HENT: Positive for sore throat. Negative for congestion, ear discharge, ear pain and sinus pain. Eyes: Negative for blurred vision, pain, discharge and redness. Respiratory: Negative for cough, hemoptysis, sputum production, shortness of breath, wheezing and stridor. Cardiovascular: Negative for chest pain. Gastrointestinal: Positive for nausea. Negative for abdominal pain, diarrhea and vomiting. Musculoskeletal: Negative for myalgias. Skin: Negative for itching and rash. Neurological: Positive for headaches. Negative for dizziness. Objective Physical Exam Constitutional: General: She is not in acute distress. Appearance: She is not diaphoretic. HENT: Head: Normocephalic. Jaw: No trismus, tenderness, swelling or pain on movement. Mouth/Throat: Mouth: Mucous membranes are moist. Pharynx: Oropharynx is clear. Uvula midline. Posterior oropharyngeal erythema present. No pharyngeal swelling, oropharyngeal exudate or uvula swelling. Eyes: Conjunctiva/sclera: Conjunctivae normal. Pupils: Pupils are equal, round, and reactive to light. Cardiovascular: Rate and Rhythm: Normal rate and regular rhythm. Heart sounds: Normal heart sounds. Pulmonary: Effort: Pulmonary effort is normal. No tachypnea, accessory muscle usage or respiratory distress. Breath sounds: Normal breath sounds. No stridor. No wheezing, rhonchi or rales. Abdominal: General: There is no distension. Palpations: Abdomen is soft. Tenderness: There is no abdominal tenderness. There is no guarding or rebound. Musculoskeletal: Cervical back: Normal range of motion and neck supple. No edema, erythema, rigidity or tenderness. No pain with movement. Normal range of motion. Lymphadenopathy: Cervical: Cervical adenopathy present. Skin: General: Skin is warm and dry. Neurological: Mental Status: She is alert and oriented to person, place, and time. ASSESSMENT/PLAN: 1. Sore throat - ICD9: 462, ICD10: J02.9 (primary diagnosis) - STREP A MOLECULAR (POC) 2. Strep throat - ICD9: 034.0, ICD10: J02.0 Strep test positive. Diagnosed with strep pharyngitis. Placed on amoxicillin. No evidence of deep space infection. Patient was educated on supportive therapies. Patient will follow up with primary care provider as needed. Patient was instructed to immediately proceed to emergency room for any new, worsening, or symptoms lasting longer than anticipated. The patient's clinical presentation is otherwise unremarkable at this time. Based on exam and clinical finding, the patient is stable for discharge. Plan of care was discussed with patient. Patient verbalizes understanding and agrees to plan of care. This note was generated using [employer] software. It may contain errors in wording, punctuation, or spelling. Tomas Richardson APRN.CHEMICAL LAB SUPERVISOR Allergies As of Date: 08/16/2024 (No Known Allergies) Date Reviewed: 08/16/2024 Reviewed by: Tomas Richardson APRN.CN (more content not included)... Normal [facility] Zepeda STREP A MOLECULAR (POC)on Interpretation and review of laboratory results Abnormal [facility] Procedural Control Valid [facility] Strep A (POCT) Positive Abnormal Negative [facility] CNOVon 09-09-2023 CNOV Office Visit ([facility] ) KYLAH EDGE ([id number]) 1970 F Date Time Provider Department 09/09/23 12:30 PM [facility] During your visit today, we recorded the following information about you: Temperature Pulse Respiration Blood pressure 98.1 degrees 81/minute 20/minute 126/84 Weight 103.9 kg Reina Riggins APRN.CNP 09/09/2023 12:58 PM Signed Subjective HPI HPI Kylah Edge is a 52 year old female who presents today for CC of cough, wheeze, sob, congestion 1 week ago. This started otc medication for relief. Has tried nothing. Risk factors no sick exposures known. Hx of asthma, smoker. .Patient presents with: Sinus Problem: Coughing, lightheaded x 1 week PAST MEDICAL HISTORY Diagnosis Date PMH - PAST MEDICAL HISTORY OF pneumonia PAST SURGICAL HISTORY Procedure Laterality Date NONE ALLERGIES Patient has no known allergies. MEDICATIONS Cholecalciferol, Vitamin D3, 50 mcg (2,000 unit) cap Take by mouth. Phentermine HCl 37.5 mg tablet Take 37.5 mg by mouth every morning. HYDROCODONE/ACETAMINO PHEN (NORCO ORAL) Take by mouth. as necessary albuterol HFA (PROAIR HFA) 90 mcg/actuation inhaler Inhale 2 Puffs as instructed every 4 hours as needed. FAMILY HISTORY Problem Relation Age of Onset Heart Father Hypertension Father None Mother colon polyps Social History Tobacco Use Smoking status: Every Day Smokeless tobacco: Never Tobacco comments: 0-5 cigarettes per day Substance Use Topics Alcohol use: Yes Comment: weekly wine or beer Review of Systems Constitutional: Negative for fever. HENT: Positive for congestion and sore throat. Negative for ear pain and nosebleeds. Respiratory: Positive for cough, shortness of breath and wheezing. Cardiovascular: Negative for chest pain. Musculoskeletal: Negative for neck pain. Skin: Negative for itching and rash. Objective Blood pressure 126/84, pulse 81, temperature 36.7 ?C (98.1 ?F), resp. rate 20, weight 103.9 kg (229 lb), SpO2 96 %. Physical Exam Constitutional: General: She is not in acute distress. Appearance: She is not toxic-appearing or diaphoretic. HENT: Head: Normocephalic and atraumatic. Cardiovascular: Rate and Rhythm: Normal rate and regular rhythm. Heart sounds: Normal heart sounds, S1 normal and S2 normal. Pulmonary: Effort: Pulmonary effort is normal. Breath sounds: Wheezing (scattered bilat) present. No decreased breath sounds, rhonchi or rales. Lymphadenopathy: Cervical: No cervical adenopathy. Right cervical: No superficial cervical adenopathy. Left cervical: No superficial cervical adenopathy. Neurological: Mental Status: She is alert and oriented to person, place, and time. Gait: Gait is intact. ASSESSMENT/PLAN: 1. Lower resp. tract infection - ICD9: 519.8, ICD10: J22 (primary diagnosis) No xray at time of exam - Discussed supportive care - Limit exposure to smoke and other inhaled irritants - Discussed possible red flags and when to seek medical attention - Follow up in 3-5 days or sooner if no better or worse -If you experience chest pain/shortness of breath go to ER - PREDNISONE 20 MG TABLET - DOXYCYCLINE MONOHYDRATE 100 MG TABLET 2. History of asthma - ICD9: V12.69, ICD10: Z87.09 Steroid ordered - PREDNISONE 20 MG TABLET Reina Riggins APRN.CHEMICAL LAB SUPERVISOR Allergies As of Date: 09/09/2023 (No Known Allergies) Date Reviewed: 09/09/2023 Reviewed by: Reina Riggins APRN.CHEMICAL LAB SUPERVISOR - Fully Assessed Reason for Visit: Sinus Problem [99] Cmt: Coughing, lightheaded x 1 week Primary Visit Diagnosis:Lower resp. tract infection [J22] Other Visit Diagnosis:History of asthma [Z87.09] Order(s):predniSONE (DELTASONE) 20 mg tabletTake 2 tablets by mouth once daily for 5 days.Disp: 10 tabletRfl: 0 doxycycline monohydrate 100 mg tabletTake 1 tablet by mouth two times a day for 7 days. May transfer to [facility] if less expensive.Disp: 14 tabletRfl: 0 Prescriptions as of 09/09/2023 - Cholecalciferol, Vitamin D3, 50 mcg (2,000 unit) cap Take by mouth. - Phentermine HCl 37.5 mg tablet Take 37.5 mg by mouth every morning. - predniSONE (DELTASONE) 20 mg tablet Take 2 tablets by mouth once daily for 5 days. - doxycycline monohydrate 100 mg tablet Take 1 tablet by mouth two times a day for 7 days. May transfer to [facility] if less expensive. - HYDROCODONE/ACETAMINO PHEN (NORCO ORAL) Take by mouth. as necessary - albuterol HFA (PROAIR HFA) 90 mcg/actuation inhaler Inhale 2 Puffs as instructed every 4 hours as needed. Problem List As Of Date: 09/09/2023 (None) Prescriptions ordered this encounter Disp Refills Start End PREDNISONE 20 MG TABLET 10 t* 0 09/09/2023 09/14/2023 Route: ORAL Sig: Take 2 tablets by mouth once daily for 5 days. DOXYCYCLINE MONOHYDRATE 100 MG TABLET 14 t* 0 09/09/2023 09/16/2023 Route: ORAL Sig: Take 1 tablet by mouth two times a day f (more content not included)... Normal [facility] - Chemistry and C hemistry - challengeOrdered By: Oj Mike on 05-18-2023 HCG ( test) Ql (U) Negative [facility] Comment on above: Very dilute urine sp ecimens, as indicated by a low specificgravity, may not contain appeals representative levels of hCG. If is still suspected, a first morning urinespecimen should be collected 48 hours later and tested. Absolute lymphocyte countOrd ered By: Dr. Faulkner on 10-21-2022 Lymphocytes Auto (Unsp spec) [#/Vol] 2.37 10*3/uL 0.83-4.51 [facility] Basophil percentageOrdered B y: Dr. Faulkner on 10-21-2022 Basophils/100 WBC (Bld) 0.4 % 0-1 [facility] Bilirubin [Mass/Vol] 0.20 mg/dL 0.20-1.00 [facility] Comment on above: For patients on eltr ombopag therapy, use of Dimension [place] TBIL is not recommended. Chloride [Moles/Vol] 103 mmol/L 98-107 [facility] Cholesterol [Mass/Vol] 243 mg/dL <200 [facility] Comment on above: <200 mg/dL Desirable 200-240 mg/dL Borderline >240 mg/dL High Risk Eosinophils/100 WBC (Bld) 0.7 % 0-5 [facility] Glucose [Mass/Vol] 89 mg/dL 74-106 [facility] Neutrophils (Bld) [#/Vol] 8.1 10*3/uL 2.0-7.7 [facility] Neutrophils/100 WBC (Bld) 70.6 % 47-70 [facility] Potassium [Moles/Vol] 3.7 mmol/L 3.5-5.1 [facility] Protein [Mass/Vol] 7.5 g/dL 6.4-8.2 [facility] Sodium [Moles/Vol] 139 mmol/L 136-145 [facility] Triglyceride [Mass/Vol] 413 mg/dL <199 [facility] Comment on above: The drugs N-Acetylcy steine and Metamizole may falsely depress this assay. TRIGLYCERIDE IS GREATER THAN 400 mg/dL. LDL RESULT IS INVALID AND WILL NOT BE REPORTED.Serum Triglycerides Reference Interval Normal <150 mg/dL Borderline high 150 - 199 mg/dL High 200 - 499 mg/dL Very High > or = 500 mg/dL WBC (Bld) [#/Vol] 11.4 10*3/uL 4.4-11.0 [facility] Blood erythrocytes count (nu mber/volume)Ordered By: Dr. Faulkner on 10-21-2022 RBC (Bld) [#/Vol] 4.73 10*6/uL 4.2-5.4 [facility] Blood hemoglobin measurement (mass/volume)Ordered By: Dr. Faulkner on 10-21-2022 Hemoglobin (Bld) [Mass/Vol] 14.4 g/dL 12.0-15.0 [facility] Blood lymphocytes/100 leukoc ytesOrdered By: Dr. Faulkner on 10-21-2022 Lymphocytes/100 WBC (Bld) 20.8 % 19-41 [facility] Blood monocytes/100 leukocyt esOrdered By: Dr. Faulkner on 10-21-2022 Monocytes/100 WBC (Bld) 7.1 % 0-10 [facility] Blood platelet mean volumeOr dered By: Dr. Faulkner on 10-21-2022 Platelet mean volume (Bld) [Entitic vol] 10.7 fL 6.2-12.0 [facility] Determination of erythrocyte mean corpuscular volume (MCV)Ordered By: Dr. Faulkner on 10-21-2022 MCV (RBC) [Entitic vol] 93.4 fL 81-99 [facility] Hematocrit Auto (Bld) [Volum e fraction]Ordered By: Dr. Faulkner on 10-21-2022 Hematocrit (Bld) [Volume fraction] 44.2 % 37-47 [facility] Laboratory - Chemistry and C hemistry - challengeOrdered By: Dr. Faulkner on 10-21-2022 ALP [Catalytic activity/Vol] 87 U/L 45-117 [facility] ALT [Catalytic activity/Vol] 23 U/L 13-56 [facility] CO2 [Moles/Vol] 28.0 mmol/L 21.0-32.0 [facility] Cobalamin (Vitamin B12) [Mass/Vol] 300 pg/mL 211-911 [facility] Globulin (S) [Mass/Vol] 3.7 g/dL 2.2-4.2 [facility] Urea nitrogen/Creatinine [Mass ratio] 24.5 mg/mg 10-20 [facility] Laboratory - Hematology and Cell countsOrdered By: Dr. Faulkner on 10-21-2022 Erythrocyte distribution width (RBC) [Entitic vol] 43.5 fL 35.1-43.9 [facility] Erythrocyte distribution width (RBC) [Ratio] 12.6 % 11.6-14.6 [facility] Immature granulocytes/100 WBC (Bld) 0.400 % 0.0-0.9 [facility] Comment on above: IG% - Immature Granu locytes (promyelocytes, myelocytes and metamyelocytes) > 1% indicates that a LEFT SHIFT is Present. MCH (RBC) [Entitic mass] 30.4 pg 27.0-32.0 [facility] Nucleated RBC/100 WBC (Bld) [Ratio] 0 % 0-5 [facility] MCHC Auto (RBC) [Mass/Vol]Or dered By: Dr. Faulkner on 10-21-2022 MCHC (RBC) [Mass/Vol] 32.6 g/dL 32-36 [facility] No Panel InformationOrdered By: Dr. Faulkner on 10-21-2022 Estimated GFR (MDRD) Amer 132 mL/min >60 [facility] Comment on above: GFR Calc Estimated GFR (MDRD) Non-Af Amer 109 mL/min >60 [facility] Comment on above: Non- GFR Calc Thyroid Stimulating Hormone (TSH) 1.44 uIU/mL 0.358-3.74 [facility] Vitamin D 25-Hydroxy 14.1 ng/mL [facility] Comment on above: Vitamin D 25(OH) Sta tus Range Deficiency <20 ng/mL (50nmol/L) Insufficiency 20 - 30 ng/mL (50 - 75 nmol/L) Sufficiency 30 - 100 ng/mL (75 - 250 nmol/L) Toxicity >100 ng/mL (>250 nmol/L) Platelets bldOrdered By: Dr. Faulkner on 10-21-2022 Platelets (Bld) [#/Vol] 334 10*3/uL 150-450 [facility] Serum or plasma albumin britton urement (mass/volume)Ordered By: Dr. Faulkner on 10-21-2022 Albumin [Mass/Vol] 3.8 g/dL 3.2-5.0 [facility] Serum or plasma albumin/glob ulin mass ratioOrdered By: Dr. Faulkner on 10-21-2022 Albumin/Globulin [Mass ratio] 1.0 {ratio} 0.9-2.4 [facility] Serum or plasma calcium britton urement (mass/volume)Ordered By: Dr. Faulkner on 10-21-2022 Calcium [Mass/Vol] 8.8 mg/dL 8.5-10.1 [facility] Serum or plasma cholesterol in HDL measurement (mass/volume)Ordered By: Dr. Faulkner on 10-21-2022 Cholesterol in HDL [Mass/Vol] 41 mg/dL >40 [facility] Comment on above: The drugs N-Acetylcy steine and Metamizole may falsely depress this assay. Reference Range HDL <40 mg/dL Low HDL Cholesterol HDL >or= 60 mg/dL High HDL Cholesterol Serum or plasma cholesterol in VLDL measurement (mass/volume)Ordered By: Dr. Faulkner on 10-21-2022 Cholesterol in VLDL [Mass/Vol] [facility] Comment on above: Test not performed Serum or plasma creatinine m easurement (mass/volume)Ordered By: Dr. Faulkner on 10-21-2022 Creatinine [Mass/Vol] 0.61 mg/dL 0.55-1.02 [facility] Comment on above: The validity of the calculated GFR & GFRAA in patients over 70 years has not been determined. Clinical correlation is essential. Serum or plasma low density lipoprotein (LDL) cholesterol measurement (mass/volume)Ordered By: Dr. Faulkner on 10-21-2022 Cholesterol in LDL [Mass/Vol] [facility] Comment on above: Test not performed Serum or plasma urea nitroge n measurement (mass/volume)Ordered By: Dr. Faulkner on 10-21-2022 Urea nitrogen [Mass/Vol] 15 mg/dL 7-18 [facility] Thin prep Papanicolaou smear with manual screeningOrdered By: Dr. Faulkner on 10-21-2022 Thin prep Papanicolaou smear with manual screening 11 U/L 15-37 [facility] Thin prep Papanicolaou smear with manual screening 8 5-15 [facility] Whole blood hemoglobin A1c/t otal hemoglobin ratio (mass fraction)Ordered By: Dr. Faulkner on 10-21-2022 HbA1c (Bld) [Mass fraction] 5.5 % 3.8-5.6 [facility] Comment on above: Normal < 5.7 % Predi abetic 5.7 - 6.4 % Diabetic >or= 6.5 % Please note range changes. US Thyroidon 05-06-2019 US Thyroid Exam Date/Time: 05/03/2019 14:25 EDT Reason for Exam: LEFT THYROID MASS Report STUDY: US Thyroid 05/03/2019 2:25 pm INDICATION: 48 y/o F with LEFT THYROID MASS. COMPARISON: None. ACCESSION NUMBER(S): [id number] ORDERING CLINICIAN: Tre Bergeron TECHNIQUE: Multiple grayscale ultrasonographic images were obtained through the thyroid. FINDINGS: RIGHT THYROID LOBE: The right thyroid measures at 5.3 x 1.5 x 1.6 cm. The right lobe of the thyroid is mildly heterogeneous, with multiple nodules. The largest is seen in the lower pole, is slightly hypoechoic, and measures at 0.5 x 0.4 x 0.5 cm. LEFT THYROID LOBE: The left thyroid measures at 3.9 x 1.9 x 1.8 cm. The left lobe of the thyroid is diffusely heterogeneous, with multiple nodules. The largest is seen in the in the mid to lower pole, is well-defined and mixed cystic and solid, and measures at 2.9 x 1.7 x 2.0 cm. ISTHMUS: The isthmus measures at 2 mm in thickness. CERVICAL LYMPHADENOPATHY: None. IMPRESSION: Heterogeneous thyroid with nodules, as above. FINAL REPORT Dictated: 05/06/2019 9:35 am Adán Hernandez MD Signed (Electronic Signature): 05/06/2019 9:35 am Signed by: Adán Hernandez MD Technologist: ERICK [facility] Vital Signs Date Time Vital Sign Value Performing Clinician Doyle herbert 08-16-2024 14:54-0400 Body temperature 99.9 [degF] Tomas Richardson APRN.CHEMICAL LAB SUPERVISOR Work Phone: [facility] 08-16-2024 14:54-0400 Body weight 107 kg Tomas Richardson APRN.CHEMICAL LAB SUPERVISOR Work Phone: [facility] 08-16-2024 14:54-0400 Diastolic blood pressure 74 mm[Hg] Tomas Richardson APRN.CHEMICAL LAB SUPERVISOR Work Phone: [facility] 08-16-2024 14:54-0400 Heart rate 101 /min Tomas Richardson APRN.CHEMICAL LAB SUPERVISOR Work Phone: [facility] 08-16-2024 14:54-0400 Respiratory rate 20 /min Tomas Drapermalika SOLUTIONS ARCHITECT.CHEMICAL LAB SUPERVISOR Work Phone: [facility] 08-16-2024 14:54-0400 SaO2% (BldA) [Mass fraction] 96 % Tomas Duartejoanna SOLUTIONS ARCHITECT.CHEMICAL LAB SUPERVISOR Work Phone: [facility] 08-16-2024 14:54-0400 Systolic blood pressure 106 mm[Hg] Tomas Duartejoanna SOLUTIONS ARCHITECT.CHEMICAL LAB SUPERVISOR Work Phone: [facility] 09-09-2023 12:37-0500 Body temperature 98.1 [degF] Reina King SOLUTIONS ARCHITECT.CHEMICAL LAB SUPERVISOR Work Phone: [facility] 09-09-2023 12:37-0500 Body weight 103.87 kg Reina King SOLUTIONS ARCHITECT.CHEMICAL LAB SUPERVISOR Work Phone: [facility] 09-09-2023 12:37-0500 Diastolic blood pressure 84 mm[Hg] Reina Riggins SOLUTIONS ARCHITECT.CHEMICAL LAB SUPERVISOR Work Phone: [facility] 09-09-2023 12:37-0500 Heart rate 81 /min Reina Riggins SOLUTIONS ARCHITECT.CHEMICAL LAB SUPERVISOR Work Phone: [facility] 09-09-2023 12:37-0500 Respiratory rate 20 /min Reina Riggins SOLUTIONS ARCHITECT.CHEMICAL LAB SUPERVISOR Work Phone: [facility] 09-09-2023 12:37-0500 SaO2% (BldA) [Mass fraction] 96 % Reina Riggins SOLUTIONS ARCHITECT.CHEMICAL LAB SUPERVISOR Work Phone: [facility] 09-09-2023 12:37-0500 Systolic blood pressure 126 mm[Hg] Reina Gilson SOLUTIONS ARCHITECT.CHEMICAL LAB SUPERVISOR Work Phone: [facility] 05-18-2023 09:14-0400 Body temperature 97.6 [degF] Dr. Shweta Faulkner Work Phone: [facility] 05-18-2023 09:14-0400 Diastolic blood pressure 66 mm[Hg] Dr. Shweta Faulkner Work Phone: [facility] 05-18-2023 09:14-0400 Heart rate 82 /min Dr. Shweta Faulkner Work Phone: [facility] 05-18-2023 09:14-0400 Respiratory rate 16 /min Dr. Shweta Faulkner Work Phone: [facility] 05-18-2023 09:14-0400 SaO2% (BldA) [Mass fraction] 96 % Dr. Shweta Faulkner Work Phone: [facility] 05-18-2023 09:14-0400 Systolic blood pressure 105 mm[Hg] Dr. Shweta Faulkner Work Phone: [facility] 05-18-2023 07:40-0400 Body height 165.[address] Shweta Faulkner Work Phone: [facility] 05-18-2023 07:40-0400 Body mass index (BMI) [Ratio] 39 kg/m2 Dr. Shweta Faulkner Work Phone: [facility] 05-18-2023 07:40-0400 Body weight 106.[address] Shweta Faulkner Work Phone: [facility] 02-28-2023 08:52-0400 Body height 165.[address] Shweta Faulkner Work Phone: [facility] 02-28-2023 08:52-0400 Body mass index (BMI) [Ratio] 38.2 kg/m2 Dr. Shweta Faulkner Work Phone: [facility] 02-28-2023 08:52-0400 Body weight 104.[address] Shweta Faulkner Work Phone: [facility] Encounters Encounter Date Encounter Type Care Provider Facility Start: 07-11-2025 ambulatory Shweta Faulkner Facility: [facility] Start: 06-30-2025 ambulatory Shweta Faulkner Facility: [facility] Start: 12-03-2024 End: 12-03-2024 ambulatory Shweta Faulkner Facility:[facility] Start: 08-16-2024 End: 08-16-2024 ambulatory SHWETA FAULKNER Facility:[facility] Start: 08-16-2024 End: 08-16-2024 Office outpatient visit 25 minutes Tomas Dylan JHA.CHEMICAL LAB SUPERVISOR Work Phone: [facility] Comment on above: Sore throat (Primary Dx); Strep throat Start: 09-09-2023 End: 09-09-2023 ambulatory WARNERS Zachery FAULKNER Facility:[facility] Start: 09-09-2023 End: 09-09-2023 Patient encounter procedure Reina Riggins CHEMICAL LAB SUPERVISOR Work Phone: [facility] Comment on above: Lower resp. tract in fection (Primary Dx); History of asthma Start: 05-18-2023 Non-patient / Non-visit Dr. Shweta Faulkner Work Phone: [facility] Start: 05-18-2023 End: 05-18-2023 Admission to same day surgery center Dr. Shweta Faulkner Work Phone: [facility]-Endoscopy Work Phone: Start: 05-18-2023 End: 05-18-[address] Shweta Faulkner Work Phone: [facility] Work Phone: Start: 04-03-2023 End: 04-03-[address] Shweta Faulkner Work Phone: [facility] Work Phone: Start: 04-03-2023 End: 04-03-[address] Shweta Faulkner Work Phone: [facility]-Outpatient Breast Imaging Start: 02-28-2023 Non-patient / Non-visit Dr. Shweta Faulkner Work Phone: [facility] Start: 10-21-2022 End: 10-21-2022 ambulatory [facility] Work Phone: Start: 10-21-2022 End: 10-21-2022 Patient encounter procedure [facility]atory[facility] Procedures Date Procedure Procedure Detail Performing Clinician Start: 08-16-2024 [place] [place] [facility] (POC) Aby Burger APRN.CNP Work Phone: Start: 05-18-[address] Shweta alexander Work Phone: Start: 04-03-2023 Screening mammography Nika Faulkner Work Phone: Plan of Treatment Date Care Activity Detail Author Start: 06-16-2024 Covid-19 Vaccine () Covid-19 Vaccine () [facility] Start: 06-16-2024 Influenza vaccination Influenza Vaccine (#1) [facility] Start: 06-16-2023 Influenza vaccination Influenza Vaccine (#1) [facility] Start: 05-18-2023 Patient discharge [facility] Start: 10-16-2022 Depression Assessment Depression Assessment [facility] Start: 2015 Cologuard (FIT-DNA) Cologuard (FIT-DNA) [facility] Start: 2015 Colonoscopy Colonoscopy [facility] Start: 2015 Colorectal Cancer Screening Colorectal Cancer Screening [facility] Start: [address] Colonography [facility] Start: 2015 Diabetes Screening Diabetes Screening [facility] Start: 2015 Fecal Occult Blood Fecal Occult Blood [facility] Start: 2015 Lipid 1996 panel - Serum or Plasma Lipid Screening [facility] Start: 2015 Lipid panel Lipid Screening [facility] Start: 2015 Screening for malignant neoplasm of colon [facility] Start: 2015 Sigmoidoscopy Sigmoidoscopy [facility] Start: 2010 Mammography Mammogram Screening [facility] Start: 2010 Screening for malignant neoplasm of breast Mammogram Screening [facility] Start: 2000 HPV Testing HPV Testing [facility] Start: 1991 Pap Testing Pap Testing [facility] Start: 1991 Screening for malignant neoplasm of cervix Cervical Cancer Screening [facility] Start: 1989 Hepatitis B Vaccine (1 of 3 - 19+ 3-dose series) Hepatitis B Vaccine (1 of 3 - 19+ 3-dose series) [facility] Start: 1989 Urine microalbumin profile DTaP,Tdap,Td Vaccine (1 - Tdap) [facility] Start: 1988 Anxiety Screening Anxiety Screening [facility] Start: 1988 Depression Screening Depression Screening [facility] Start: 1988 Hepatitis C Screening Hepatitis C Screening [facility] Start: 1988 Hepatitis C screening Hepatitis C Screening [facility] Start: 1988 HIV Screening HIV Screening [facility] Start: 1988 HIV screening HIV Screening [facility] Start: 1976 Pneumococcal vaccination [facility] Start: 04-18-1971 Covid-19 Vaccine (#1) Covid-19 Vaccine (#1) [facility] Start: 1970 Hepatitis B Vaccine (1 of 3 - 3-dose series) Hepatitis B Vaccine (1 of 3 - 3-dose series) [facility] Patient referral [facility] Work Phone: Payers Date Payer Category Payer Self-pay [id number] 2024 Private Health Insurance [employer] A ETNA ASA GENERIC [id number] 2024-Present [phone] [address] [place] [address] PPO [id number] 2024 Unknown [id number] 2022 Unknown MMO MMO KYLE [id number] 2022-Present [phone] [address] [address] [place] [address] PPO [id number] 2011 Private Health Insurance [id number] Unknown [id number] Unknown [id number] Unknown [id number] Social History Date Type Detail Facility Start: 01-17-2018 End: 05-16-2023 Tobacco smoking status NHIS Unknown if ever smoked [facility] Start: 1970 Sex Assigned At Female [facility] Start: 09-09-2023 Tobacco smoking stat us NHIS Smokes tobacco daily [facility] Start: 09-09-2023 Tobacco use and exposure Smokeless tobacco non-user [facility] Start: 09-09-2023 End: 08-16-2024 Alcohol intake Current drinker of alcohol (finding) [facility] Start: 09-21-2020 End: 09-09-2023 History of Social function [facility] Start: 09-21-2020 End: 09-09-2023 Tobacco use panel [facility] National Score (1-100), lower number is lower risk Not on file [facility] Start: 09-09-2023 Tobacco Comment 0-5 cigarettes per d ay [facility] Start: 1970 Sex Assigned At Not on file [facility] Goals Date Patient Goal Desired Activity /State Mental Status Date Assessment Result Facility 05-18-2023 Cognitive function Touch/Shaking [facility] Work Phone: Clinical Notes 05-18-2023 to 08-16-2024 Tomas Richardson APRN.GEOVANY - 08/16/2024 3:05 PM Reina Forde APRN.CNP - 09/09/2023 12:47 PM EST Note Date & Type Note Facility 08-16-2024 Note HNO ID: [id number] Author: TOMAS RICHARDSON APRN.CHEMICAL LAB SUPERVISOR Service: ? Author Type: Nurse Practitioner Type: Progress Notes Filed: 08/16/2024 15:21 Note Text: Subjective HPI Nontoxic-appearing female presents urgent care chief complaint strep throat concerns. Duration of symptoms 2 days. Associated symptoms fever sore throat nausea headache. History of strep throat this feels similar. No known sick contacts. Did take Tylenol. This did help. Denies any difficulty swallowing his secretion decreased range of motion of neck or trismus. Did have tonsils removed as a child. Past medical history prescription medications allergies reviewed. .Patient presents with: Sore Throat: Fever, headache, nausea x 2 days PAST MEDICAL HISTORY Diagnosis Date PMH - PAST MEDICAL HISTORY OF pneumonia PAST SURGICAL HISTORY Procedure Laterality Date NONE ALLERGIES Patient has no known allergies. MEDICATIONS Cholecalciferol, Vitamin D3, 50 mcg (2,000 unit) cap Take by mouth. HYDROCODONE/ACETAMINOPHEN (NORCO ORAL) Take by mouth. as necessary albuterol HFA (PROAIR HFA) 90 mcg/actuation inhaler Inhale 2 Puffs as instructed every 4 hours as needed. FAMILY HISTORY Problem Relation Age of Onset Heart Father Hypertension Father None Mother colon polyps Social History Tobacco Use Smoking status: Every Day Smokeless tobacco: Never Tobacco comments: 0-5 cigarettes per day Substance Use Topics Alcohol use: Yes Comment: weekly wine or beer BP 106/74 Pulse 101 Temp 37.7 ?C (99.9 ?F) Resp 20 Wt 107 kg (235 lb 14.3 oz) LMP (LMP Unknown) SpO2 96% Review of Systems Constitutional: Positive for fever. Negative for chills and malaise/fatigue. HENT: Positive for sore throat. Negative for congestion, ear discharge, ear pain and sinus pain. Eyes: Negative for blurred vision, pain, discharge and redness. Respiratory: Negative for cough, hemoptysis, sputum production, shortness of breath, wheezing and stridor. Cardiovascular: Negative for chest pain. Gastrointestinal: Positive for nausea. Negative for abdominal pain, diarrhea and vomiting. Musculoskeletal: Negative for myalgias. Skin: Negative for itching and rash. Neurological: Positive for headaches. Negative for dizziness. Objective Physical Exam Constitutional: General: She is not in acute distress. Appearance: She is not diaphoretic. HENT: Head: Normocephalic. Jaw: No trismus, tenderness, swelling or pain on movement. Mouth/Throat: Mouth: Mucous membranes are moist. Pharynx: Oropharynx is clear. Uvula midline. Posterior oropharyngeal erythema present. No pharyngeal swelling, oropharyngeal exudate or uvula swelling. Eyes: Conjunctiva/sclera: Conjunctivae normal. Pupils: Pupils are equal, round, and reactive to light. Cardiovascular: Rate and Rhythm: Normal rate and regular rhythm. Heart sounds: Normal heart sounds. Pulmonary: Effort: Pulmonary effort is normal. No tachypnea, accessory muscle usage or respiratory distress. Breath sounds: Normal breath sounds. No stridor. No wheezing, rhonchi or rales. Abdominal: General: There is no distension. Palpations: Abdomen is soft. Tenderness: There is no abdominal tenderness. There is no guarding or rebound. Musculoskeletal: Cervical back: Normal range of motion and neck supple. No edema, erythema, rigidity or tenderness. No pain with movement. Normal range of motion. Lymphadenopathy: Cervical: Cervical adenopathy present. Skin: General: Skin is warm and dry. Neurological: Mental Status: She is alert and oriented to person, place, and time. ASSESSMENT/PLAN: 1. Sore throat - ICD9: 462, ICD10: J02.9 (primary diagnosis) - STREP A MOLECULAR (POC) 2. Strep throat - ICD9: 034.0, ICD10: J02.0 Strep test positive. Diagnosed with strep pharyngitis. Placed on amoxicillin. No evidence of deep space infection. Patient was educated on supportive therapies. Patient will follow up with primary care provider as needed. Patient was instructed to immediately proceed to emergency room for any new, worsening, or symptoms lasting longer than anticipated. The patient's clinical presentation is otherwise unremarkable at this time. Based on exam and clinical finding, the patient is stable for discharge. Plan of care was discussed with patient. Patient verbalizes understanding and agrees to plan of care. This note was generated using [employer] software. It may contain errors in wording, punctuation, or spelling. Tomas Richardson APRN.[facility] 08-16-2024 History of Present illness Narrative Subjective HPI Nontoxic-appearing female presents urgent care chief complaint strep throat concerns. Duration of symptoms 2 days. Associated symptoms fever sore throat nausea headache. History of strep throat this feels similar. No known sick contacts. Did take Tylenol. This did help. Denies any difficulty swallowing his secretion decreased range of motion of neck or trismus. Did have tonsils removed as a child. Past medical history prescription medications allergies reviewed. .Patient presents with: Sore Throat: Fever, headache, nausea x 2 days PAST MEDICAL HISTORY Diagnosis Date PMH - PAST MEDICAL HISTORY OF pneumonia PAST SURGICAL HISTORY Procedure Laterality Date NONE ALLERGIES Patient has no known allergies. MEDICATIONS Cholecalciferol, Vitamin D3, 50 mcg (2,000 unit) cap Take by mouth. HYDROCODONE/ACETAMINOPHEN (NORCO ORAL) Take by mouth. as necessary albuterol HFA (PROAIR HFA) 90 mcg/actuation inhaler Inhale 2 Puffs as instructed every 4 hours as needed. FAMILY HISTORY Problem Relation Age of Onset Heart Father Hypertension Father None Mother colon polyps Social History Tobacco Use Smoking status: Every Day Smokeless tobacco: Never Tobacco comments: 0-5 cigarettes per day Substance Use Topics Alcohol use: Yes Comment: weekly wine or beer BP 106/74 Pulse 101 Temp 37.7 C (99.9 F) Resp 20 Wt 107 kg (235 lb 14.3 oz) LMP (LMP Unknown) SpO2 96% Review of Systems Constitutional: Positive for fever. Negative for chills and malaise/fatigue. HENT: Positive for sore throat. Negative for congestion, ear discharge, ear pain and sinus pain. Eyes: Negative for blurred vision, pain, discharge and redness. Respiratory: Negative for cough, hemoptysis, sputum production, shortness of breath, wheezing and stridor. Cardiovascular: Negative for chest pain. Gastrointestinal: Positive for nausea. Negative for abdominal pain, diarrhea and vomiting. Musculoskeletal: Negative for myalgias. Skin: Negative for itching and rash. Neurological: Positive for headaches. Negative for dizziness. Objective Physical Exam Constitutional: General: She is not in acute distress. Appearance: She is not diaphoretic. HENT: Head: Normocephalic. Jaw: No trismus, tenderness, swelling or pain on movement. Mouth/Throat: Mouth: Mucous membranes are moist. Pharynx: Oropharynx is clear. Uvula midline. Posterior oropharyngeal erythema present. No pharyngeal swelling, oropharyngeal exudate or uvula swelling. Eyes: Conjunctiva/sclera: Conjunctivae normal. Pupils: Pupils are equal, round, and reactive to light. Cardiovascular: Rate and Rhythm: Normal rate and regular rhythm. Heart sounds: Normal heart sounds. Pulmonary: Effort: Pulmonary effort is normal. No tachypnea, accessory muscle usage or respiratory distress. Breath sounds: Normal breath sounds. No stridor. No wheezing, rhonchi or rales. Abdominal: General: There is no distension. Palpations: Abdomen is soft. Tenderness: There is no abdominal tenderness. There is no guarding or rebound. Musculoskeletal: Cervical back: Normal range of motion and neck supple. No edema, erythema, rigidity or tenderness. No pain with movement. Normal range of motion. Lymphadenopathy: Cervical: Cervical adenopathy present. Skin: General: Skin is warm and dry. Neurological: Mental Status: She is alert and oriented to person, place, and time. ASSESSMENT/PLAN: 1. Sore throat - ICD9: 462, ICD10: J02.9 (primary diagnosis) - STREP A MOLECULAR (POC) 2. Strep throat - ICD9: 034.0, ICD10: J02.0 Strep test positive. Diagnosed with strep pharyngitis. Placed on amoxicillin. No evidence of deep space infection. Patient was educated on supportive therapies. Patient will follow up with primary care provider as needed. Patient was instructed to immediately proceed to emergency room for any new, worsening, or symptoms lasting longer than anticipated. The patient's clinical presentation is otherwise unremarkable at this time. Based on exam and clinical finding, the patient is stable for discharge. Plan of care was discussed with patient. Patient verbalizes understanding and agrees to plan of care. This note was generated using [employer] software. It may contain errors in wording, punctuation, or spelling. Tomas Richardson APRN.GEOVANY documented in this encounter [facility] 09-09-2023 Note HNO ID: [id number] Author: Reina Riggins APRN.GEOVANY Service: ? Author Type: Nurse Practitioner Type: Progress Notes Filed: 09/09/2023 12:58 PM Note Text: Subjective HPI HPI Klyah Edge is a 52 year old female who presents today for CC of cough, wheeze, sob, congestion 1 week ago. This started otc medication for relief. Has tried nothing. Risk factors no sick exposures known. Hx of asthma, smoker. .Patient presents with: Sinus Problem: Coughing, lightheaded x 1 week PAST MEDICAL HISTORY Diagnosis Date PMH - PAST MEDICAL HISTORY OF pneumonia PAST SURGICAL HISTORY Procedure Laterality Date NONE ALLERGIES Patient has no known allergies. MEDICATIONS Cholecalciferol, Vitamin D3, 50 mcg (2,000 unit) cap Take by mouth. Phentermine HCl 37.5 mg tablet Take 37.5 mg by mouth every morning. HYDROCODONE/ACETAMINOPHEN (NORCO ORAL) Take by mouth. as necessary albuterol HFA (PROAIR HFA) 90 mcg/actuation inhaler Inhale 2 Puffs as instructed every 4 hours as needed. FAMILY HISTORY Problem Relation Age of Onset Heart Father Hypertension Father None Mother colon polyps Social History Tobacco Use Smoking status: Every Day Smokeless tobacco: Never Tobacco comments: 0-5 cigarettes per day Substance Use Topics Alcohol use: Yes Comment: weekly wine or beer Review of Systems Constitutional: Negative for fever. HENT: Positive for congestion and sore throat. Negative for ear pain and nosebleeds. Respiratory: Positive for cough, shortness of breath and wheezing. Cardiovascular: Negative for chest pain. Musculoskeletal: Negative for neck pain. Skin: Negative for itching and rash. Objective Blood pressure 126/84, pulse 81, temperature 36.7 ?C (98.1 ?F), resp. rate 20, weight 103.9 kg (229 lb), SpO2 96 %. Physical Exam Constitutional: General: She is not in acute distress. Appearance: She is not toxic-appearing or diaphoretic. HENT: Head: Normocephalic and atraumatic. Cardiovascular: Rate and Rhythm: Normal rate and regular rhythm. Heart sounds: Normal heart sounds, S1 normal and S2 normal. Pulmonary: Effort: Pulmonary effort is normal. Breath sounds: Wheezing (scattered bilat) present. No decreased breath sounds, rhonchi or rales. Lymphadenopathy: Cervical: No cervical adenopathy. Right cervical: No superficial cervical adenopathy. Left cervical: No superficial cervical adenopathy. Neurological: Mental Status: She is alert and oriented to person, place, and time. Gait: Gait is intact. ASSESSMENT/PLAN: 1. Lower resp. tract infection - ICD9: 519.8, ICD10: J22 (primary diagnosis) No xray at time of exam - Discussed supportive care - Limit exposure to smoke and other inhaled irritants - Discussed possible red flags and when to seek medical attention - Follow up in 3-5 days or sooner if no better or worse -If you experience chest pain/shortness of breath go to ER - PREDNISONE 20 MG TABLET - DOXYCYCLINE MONOHYDRATE 100 MG TABLET 2. History of asthma - ICD9: V12.69, ICD10: Z87.09 Steroid ordered - PREDNISONE 20 MG TABLET Reina Riggins APRN.[facility] 09-09-2023 History of Present illness Narrative Subjective HPI HPI Kylah Edge is a 52 year old female who presents today for CC of cough, wheeze, sob, congestion 1 week ago. This started otc medication for relief. Has tried nothing. Risk factors no sick exposures known. Hx of asthma, smoker. .Patient presents with: Sinus Problem: Coughing, lightheaded x 1 week PAST MEDICAL HISTORY Diagnosis Date PMH - PAST MEDICAL HISTORY OF pneumonia PAST SURGICAL HISTORY Procedure Laterality Date NONE ALLERGIES Patient has no known allergies. MEDICATIONS Cholecalciferol, Vitamin D3, 50 mcg (2,000 unit) cap Take by mouth. Phentermine HCl 37.5 mg tablet Take 37.5 mg by mouth every morning. HYDROCODONE/ACETAMINOPHEN (NORCO ORAL) Take by mouth. as necessary albuterol HFA (PROAIR HFA) 90 mcg/actuation inhaler Inhale 2 Puffs as instructed every 4 hours as needed. FAMILY HISTORY Problem Relation Age of Onset Heart Father Hypertension Father None Mother colon polyps Social History Tobacco Use Smoking status: Every Day Smokeless tobacco: Never Tobacco comments: 0-5 cigarettes per day Substance Use Topics Alcohol use: Yes Comment: weekly wine or beer Review of Systems Constitutional: Negative for fever. HENT: Positive for congestion and sore throat. Negative for ear pain and nosebleeds. Respiratory: Positive for cough, shortness of breath and wheezing. Cardiovascular: Negative for chest pain. Musculoskeletal: Negative for neck pain. Skin: Negative for itching and rash. Objective Blood pressure 126/84, pulse 81, temperature 36.7 C (98.1 F), resp. rate 20, weight 103.9 kg (229 lb), SpO2 96 %. Physical Exam Constitutional: General: She is not in acute distress. Appearance: She is not toxic-appearing or diaphoretic. HENT: Head: Normocephalic and atraumatic. Cardiovascular: Rate and Rhythm: Normal rate and regular rhythm. Heart sounds: Normal heart sounds, S1 normal and S2 normal. Pulmonary: Effort: Pulmonary effort is normal. Breath sounds: Wheezing (scattered bilat) present. No decreased breath sounds, rhonchi or rales. Lymphadenopathy: Cervical: No cervical adenopathy. Right cervical: No superficial cervical adenopathy. Left cervical: No superficial cervical adenopathy. Neurological: Mental Status: She is alert and oriented to person, place, and time. Gait: Gait is intact. ASSESSMENT/PLAN: 1. Lower resp. tract infection - ICD9: 519.8, ICD10: J22 (primary diagnosis) No xray at time of exam - Discussed supportive care - Limit exposure to smoke and other inhaled irritants - Discussed possible red flags and when to seek medical attention - Follow up in 3-5 days or sooner if no better or worse -If you experience chest pain/shortness of breath go to ER - PREDNISONE 20 MG TABLET - DOXYCYCLINE MONOHYDRATE 100 MG TABLET 2. History of asthma - ICD9: V12.69, ICD10: Z87.09 Steroid ordered - PREDNISONE 20 MG TABLET Reina Riggins APRN.CHEMICAL LAB SUPERVISOR documented in this encounter [facility] 05-18-2023 Procedure note [facility] 05-18-2023 Procedure note [facility] Evaluation note No assessment inform ation available [facility] Work Phone: Evaluation note Diagnosis Onset Date Encounter for screening for malignant neoplasm of colon acute [facility] Work Phone: Evaluation note* Diagnosis Lower resp. tract infection- Primary Other diseases of respiratory system, not elsewhere classified History of asthma Personal history of other diseases of respiratory system [facility] Diagnosis Sore throat- Primary Acute pharyngitis Strep throat Streptococcal sore throat [facility] Author William Friend [facility] May 18, 2023 8:29am Note Date/Time May 18, 2023 8:2 9am [facility] Medical Records Department [address] [place] [address] History & Physical Exam 05/18/23826 MR#: [id number] Acct: [id number] Name: KYLAH EDGE Rep #:[id number] : 1970 52 From: William Alanis DO PCP: Dr. Shweta Faulkner, DO Status:[facility] Location: [place] [address] HPI - General General Date of Admission: 05/18/23 Date of Service: 05/18/23 Chief Complaint: Screening colonoscopy HPI Dalton EDGE, is a 52 F who presents today for screening colonoscopy. She hasa family history of cancers polyps in her mother status post segmental resection. She has never had a colonoscopy. She denies any abdominal pain. She denies any nausea, vomiting or diarrhea. She denies any chest pain or shortness of breath. She has not take any medicines on a daily basis. Overall she is in fairly good health. [facility] Medical History (Updated 05/16/23 @ 09:34 by Emy Portillo) Asthma Heartburn History of edema Leg cramps Migraine headache Smoker Syncope Wears partial dentures Home Medications cholecalciferol (vitamin D3) 50 mcg (2,000 unit) capsule 50 mcg PO DAILY 02/28/23 [History Last Taken Unknown] hydrocodone 7.5 mg-acetaminophen 325 mg tablet 1 tab PO Q6H PRN pain 05/16/23 [History Last Taken Unknown] Allergy/AdvReac Type Severity Reaction Status Date / Time No Known Allergies Allergy Verified 05/18/23 07:40 Family History (Updated 02/28/23 @ 08:49 by Rimma Riggins) Mother Colon polyps Colon cancer History of partial colectomy Surgical History (Updated 05/16/23 @ 09:34 by Emy Portillo) History of dental surgery History of tonsillectomy (~1975) Social History Smoking Status: Current every day smoker tobacco type: cigarettes ROS Review of Systems ROS Unobtainable: other Constitutional Constitutional: Denies fatigue, fever(s), poor appetite, weight gain or weight loss ENT HEENT: Denies mouth lesions Cardiovascular Cardiovascular: Denies abdominal bloating, abdominal edema or abdominal pain Respiratory/Chest Respiratory/Chest: Denies change in mental status, change in phlegm color, chestcongestion or chest tightness Gastrointestinal Gastrointestinal: Denies belching, bloating, change in bowel habits, change in stool character, chewing difficulty, coffee ground emesis, constipation, cramping, diarrhea, dyspepsia, dysphagia, early satiety, excessive flatus, fecalincontinence, heartburn, hematemesis, hematochezia, hemorrhoids, loose stools, melena, nausea, odynophagia, rectal bleeding, tenesmus, vomiting or weight changes Genitourinary Genitourinary: Denies abdominal discomfort, burning urination or itching Musculoskeletal Musculoskeletal: Reports as per HPI; Denies muscle weakness or myalgias Integumentary Integumentary: Denies jaundice Neurologic Neurologic: Denies lack of coordination or weakness Psychiatric Psychiatric: Denies confusion, depression, memory loss, mood swings, paranoia orsuicidal ideation Endocrine Endocrinology: Denies systems reviewed and no addt'l complaints, except as documented Hematologic/Lymphatic Hematologic/Lymphatic: Denies anemia, easy bleeding, easy bruising or lymphadenopathy Allergic/Immunologic Allergic/Immunologic: Denies systems reviewed and no addt'l complaints, except as documented Vital Signs Vital Signs Vital Signs: 05/18/23 07:40 05/18/23 07:40 Temperature 97.1 F L Temperature Source Temporal Pulse Rate 76 Respiratory Rate 16 Respiratory Pattern Normal Blood Pressure 118/71 Blood Pressure Mean 86 Blood Pressure Source Monitor Blood Pressure Position Semi-Fowlers Blood Pressure Location Left Arm Pulse Ox 95 Oxygen Delivery Method Room Air Weight Weight: 234 lb 9.149 oz Body Mass Index (BMI) 39.0 Physical Exam Const alert General Appearance: cooperative Orientation / Consciousness: oriented to person HEENT hearing grossly normal bilaterally Head and Scalp: normal to inspection Face and Sinus: face symmetric Nose: external nose normal Mouth: oral and palatal mucosa normal Eyes conjunctivae normal General Eye: normal appearance of both eyes Neck full ROM General: normal visual inspection Lymph Lymphatic: no lymphadenopathy noted Chest inspection of chest normal and palpation of chest normal Chest: symmetrical chest wall rise Resp normal respiratory effort Effort and Inspection: able to speak in complete sentences Cardio regular rate GI non-distended Percussion: normal to percussion Rectal Exam: deferred Neuro Speech: speech normal Gait (Neuro): normal gait Results Lab / Micro Data Labs: Laboratory Results - last 24 hr 05/18/23 07:25: Urine Test Negative Assessment & Plan Assessment/Plan (1) Encounter for screening for malignant neoplasm of colon: PLAN: She was explained alternatives, risk, benefits including outstanding bleeding, infection, sepsis, perforation, need for emergent surgery . She will have an ASA of 2. 05/18/23 0829 <Electronically signed by William Alanis DO> Cosigner Signature (if applicable): CC: Dr. Shweta Faulkner DO; William Alanis DO~ Signed [facility] Work Phone: Summary Purpose Family History No Family History Records Found Relationship Condition Age at Onset Recorded Date/T emily mother Polyp of colon Unknown Malignant neoplasm of colon Unknown History of partial s urgical removal of colon Unknown Advance Directives No Advanced Directives Records Found Advance Directive Response Recorded Date/ Time Living Will No January 17, 2018 2:16pm Power of Transportation Analyst No January 17 2:16pm Advance Directive Response Recorded Date/ Time Living Will No January 17, 2018 3:16pm Power of Transportation Analyst No January 17 8 3:16pm Advance Directive Response Recorded Date/ Time Living Will No May 16, 2023 9:24am Power of Transportation Analyst No May 16 9:24am Chief Complaint and Reason for Visit Chief Complaint Amb Documentation SCREENING Chief Complaint Amb Documentation SCREENING Reason for Visit Encounter for screen ing for malignant neoplasm of colon Additional Source Comments INFORMATION SOURCE (unrecogn ized section and content) DATE CREATED AUTHOR 05/06/2019 [facility] DATE CREATED AUTHOR AUTHOR'S ORGANIZ ATION 08/18/2024 [facility] DATE CREATED AUTHOR AUTHOR'S ORGANIZ ATION 07/05/2025 [facility] Care Teams (unrecognized sec tion and content) Team Status: Active Member Role Status Dates Dr. Shweta Faulkner DO Family Provider Active Dr. Shweta Faulkner DO Primary Care Provider Active Team Status: Inactive Member Role Status Dates Dr. Shweta Faulkner DO Primary Care Provider, Attendin g Provider Active Team Status: Active Member Role Status Dates Dr. Shweta Faulkner DO Primary Care Provider Active Rimma Oldenburg Attending Provider Active Team Status: Inactive Member Role Status Dates Dr. Shweta Faulkner DO Primary Care Prov ider, Attending Provider, Referring Provider Active Team Status: Active Member Role Status Dates Dr. Shweta Faulkner DO Primary Care Provider, Referrin g Provider Active Dr. William Alanis DO Attending Provider, Other Prov ider Active Team Status: Inactive Member Role Status Dates Dr. Shweta Faulkner DO Primary Care Provider, Referrin g Provider Active Dr. William Alanis DO Attending Provider Active Bus Info Consultant Relationship Specialty Start Date End Date Shweta Faulkner DO [address] [place] [address] PCP - General Family Medicine 07/09/17 Bus Info Consultant Relationship Specialty Start Date End Date Shweta Faulkner DO [address] [place] [address] PCP - General Family Medicine 07/09/17 Goals (unrecognized section and content) Goals may be documented in a n alternate sectionGoals may be documented in an alternate section Source Comments (unrecognize d section and content) In the event this informatio n is protected by the Federal Confidentiality of Alcohol and Drug Abuse Patient Records regulations: The Federal rules restrict any use of the information to criminally investigate or prosecute any alcohol or drug abuse patient.[facility] the event this information is protected by the Federal Confidentiality of Alcohol and Drug Abuse Patient Records regulations: The Federal rules restrict any use of the information to criminally investigate or prosecute any alcohol or drug abuse patient.[facility] Reason for Visit (unrecogniz ed section and content) Reason Comments Sinus Problem Coughing, lightheade d x 1 week Reason Comments Sore Throat Fever, headache, vel sea x 2 days FOR RECORDS PERTAINING TO PATIENTS WHO ARE OR HAVE BEEN ENROLLED IN A CHEMICAL DEPENDENCY/SUBSTANCEABUSE PROGRAM, SOME INFORMATION MAY BE OMITTED. This clinical summary was aggregated from multiple sources. Caution should be exercised in using it in the provision of clinical care. This summary normalizes information from multiple sources, and as a consequence, information in this document may materially change the coding, format and clinical context of patient data. In addition, data may be omitted in some cases. CLINICAL DECISIONS SHOULD BE BASED ON THE PRIMARY CLINICAL RECORDS. [facility]. provides no warranty or guarantee of the accuracy or completeness of information in this document.
== END | disposition home or self-care (01) ==
LOC: CT 18:14
PROVIDERS: PCP Family Medicine; Visit Provider Family Medicine
DX: Z12.2 Encounter for screening for malignant neoplasm of respiratory organs (principal); F17.210 Nicotine dependence, cigarettes, uncomplicated
CPT/HCPCS: 71271